=== PATIENT | male | born 1955 | race Caucasian/White ===

== ENCOUNTER 2018-07-15 20:37 | Emergency (ER) | payer BC, OTHER ==
[~2018-07-15] VITALS: Ht 180.3 cm; Wt 102.3 kg
[~2018-07-15 20:37] MED LIST: /LOR25TA PO; ALLO10TA PO; ALPR0.25 PO; ASPI325T OR; BISO5TAB2 PO; CARI350T19 PO; CLAR10CA3 PO; COUM2.5T17 PO; LEVA1TAB2 PO; LISI20TA PO; MULTTAB4 PO; OMEP20CA3 PO; PERCOCET PO; TUDO1AER2 INH; TYLE167L PO; VITA100067 PO; VOLT1GEL2 TOP; [UNRECOGNIZED DRUG - CODE] OR; [UNRECOGNIZED DRUG - OTHER] PO
[2018-07-15 21:55] LABS: HEMATOCRIT 44.2 % (42.0-52.0); HEMOGLOBIN 15.1 g/dl (13.5-17.5); MEAN CORPUSCULAR HEMOGLOBIN 33.9 pg (27.0-33.0); MEAN CORPUSCULAR HGB CONC 34.2 g/dl (32.0-36.5); MEAN CORPUSCULAR VOLUME 99.3 fl (80.0-96.0); PLATELET COUNT, AUTOMATED 430 10^3/uL (150-450); RED BLOOD COUNT 4.45 10^6/uL (4.30-6.10); WHITE BLOOD COUNT 10.3 10^3/uL (4.0-10.0)
[2018-07-15 22:18] LABS: AMPHETAMINES LEVEL URINE NEGATIVE (NEGATIVE); BARBITURATES URINE NEGATIVE (NEGATIVE); BENZODIAZEPINES URINE NEGATIVE (NEGATIVE); CANNABINOIDS URINE NEGATIVE (NEGATIVE); COCAINE METABOLITE URINE NEGATIVE (NEGATIVE); METHADONE URINE NEGATIVE (NEGATIVE); OPIATES URINE POSITIVE (NEGATIVE); PHENCYCLIDINE URINE NEGATIVE (NEGATIVE)
[2018-07-15 22:26] LABS: ACETAMINOPHEN LEVEL < 2.0 UG/ML (10.0-30.0); ALBUMIN 3.8 GM/DL (3.2-5.2); ALT/SGPT 43 U/L (12-78); BILIRUBIN,DIRECT 0.3 MG/DL (0.0-0.2); BILIRUBIN,TOTAL 0.7 MG/DL (0.2-1.0); BLOOD UREA NITROGEN 10 MG/DL (7-18); CALCIUM LEVEL 8.7 MG/DL (8.8-10.2); CARBON DIOXIDE LEVEL 25 MEQ/L (21-32); CHLORIDE LEVEL 107 MEQ/L (98-107); CREATININE FOR GFR 0.75 MG/DL (0.70-1.30); ETHYL ALCOHOL (ETHANOL) 0.241 % (0.000-0.010); GLOMERULAR FILTRATION RATE > 60.0 (>49); GLUCOSE, FASTING 101 MG/DL (70-100); POTASSIUM SERUM 4.3 MEQ/L (3.5-5.1); SALICYLATE LEVEL 2.1 MG/DL (5.0-30.0); SODIUM LEVEL 141 MEQ/L (136-145); TOTAL PROTEIN 6.6 GM/DL (6.4-8.2)
[2018-07-16] MEDS ORDERED: hydroCHLOROthiazide 25 MG TAB PO ONE (06:00)
[2018-07-16] MEDS ORDERED: LISINOPRIL 20 MG TAB PO ONE (06:00)
[2018-07-16] MEDS ORDERED: BISOPROLOL FUMARATE 5 MG TAB PO ONE (06:00)
[2018-07-16] MEDS ORDERED: HYDR-3719 PO (08:50)
[2018-07-16] MEDS ORDERED: NORCO, ANEXSIA 5/325MG TABLET (HYDROcodone/ACETAMINOPHEN) PO ONE (09:15)
[2018-07-16 10:03] VITALS: BP 160/98
== END 2018-07-16 10:12 | disposition home or self-care (01) ==
LOC: M ED 20:37
DX: F60.89 Other specific personality disorders (principal); Z73.4 Inadequate social skills, not elsewhere classified; F10.120 Alcohol abuse with intoxication, uncomplicated; I10 Essential (primary) hypertension; K21.9 Gastro-esophageal reflux disease without esophagitis; M54.9 Dorsalgia, unspecified; Z79.899 Other long term (current) drug therapy
CPT/HCPCS: 36415; 80048; 80076; 80307; 84443; 85027; 99284; G0480

== ENCOUNTER → 2020-02-28 | Outpatient (CLI) | payer BC, OTHER ==
[~2020-02-28] MED LIST changes: +ATOR1TAB19 PO; +BUPR150T3 PO; +CVS1CAP2 PO; +D31000TA2 PO; +HYDR-3719 PO; +HYDR-4517 PO; +LORA10TA3 PO; +MULTCAP PO; +OMEG1CAP16 PO; +OMEP1CAP73 PO; +OYST1TAB PO; +SILD100T PO; +TRIBTAB9 PO; -TUDO1AER2 INH; +TUDO1AER3 INH; +VENTAER INH; +VITA-243 PO; +VITATAB73 PO; +XANA0.5T PO; +ZYLO300T6 PO
[2020-02-28 07:11] LABS: INR 0.96; PARTIAL THROMBOPLASTIN TIME 26.4 SECONDS (24.2-38.5)
[2020-02-28 07:13] LABS: BASO # 0.1 10^3/uL (0.0-0.2); BASO % 0.7 % (0.0-1.0); EOS # 0.2 10^3/uL (0.0-0.5); EOS % 1.4 % (0.0-3.0); HEMATOCRIT 42.1 % (42.0-52.0); HEMOGLOBIN 13.7 g/dl (13.5-17.5); LYMPH # 4.4 10^3/uL (1.5-5.0); LYMPH % 26.1 % (24.0-44.0); MEAN CORPUSCULAR HEMOGLOBIN 31.6 pg (27.0-33.0); MEAN CORPUSCULAR HGB CONC 32.5 g/dl (32.0-36.5); MEAN CORPUSCULAR VOLUME 97.2 fl (80.0-96.0); MONO # 1.2 10^3/uL (0.0-0.8); MONO % 7.1 % (0.0-5.0); NEUTROPHILS # 10.6 10^3/uL (1.5-8.5); PLATELET COUNT, AUTOMATED 568 10^3/uL (150-450); RED BLOOD COUNT 4.33 10^6/uL (4.30-6.10); WHITE BLOOD COUNT 16.9 10^3/uL (4.0-10.0)
[2020-02-28 07:16] LABS: BLOOD UREA NITROGEN 28 MG/DL (7-18); CALCIUM LEVEL 9.1 MG/DL (8.8-10.2); CARBON DIOXIDE LEVEL 28 MEQ/L (21-32); CHLORIDE LEVEL 103 MEQ/L (98-107); CREATININE FOR GFR 1.02 MG/DL (0.70-1.30); GLOMERULAR FILTRATION RATE > 60.0 (>49); GLUCOSE, FASTING 96 MG/DL (70-100); POTASSIUM SERUM 4.2 MEQ/L (3.5-5.1); RHEUMATOID FACTOR QUANT < 10.0 IU/ML (<15.0); SODIUM LEVEL 137 MEQ/L (136-145)
[2020-03-03 17:08] LABS: ANCA-ATYPICAL <1:20 titer (Neg:<1:20); ASPERGILLUS FLAVUS ABY Negative (Neg:<1:1); ASPERGILLUS FUMIGATUS ABY Negative (Neg:<1:1); ASPERGILLUS NIGER ABY Negative (Neg:<1:1); BLASTOMYCES ANTIBODY LEVEL Negative (Neg:<1:1); CRYPTOCOCCUS ANTIGEN SER Negative (Negative); CYTOPLASMIC NEUTROP AB ANCA-C <1:20 titer (Neg:<1:20); PERINUCLEAR AB ANCA-P <1:20 titer (Neg:<1:20)
== END ==
LOC: M LAB 06:09
PROVIDERS: ATTEND Internal Medicine Pulmonary Disease
DX: R91.8 Other nonspecific abnormal finding of lung field (principal)

== ENCOUNTER → 2020-02-29 | Outpatient (CLI) | payer BC, OTHER | LOC: M LABSMTC 10:49 | PROVIDERS: ATTEND Anesthesiology | DX: Z01.812 Encounter for preprocedural laboratory examination (principal); Z20.828 Contact with and (suspected) exposure to other viral communicable diseases ==

== ENCOUNTER 2020-03-05 06:07 | Day surgery (SDC) | payer BC, OTHER ==
[~2020-03-05] VITALS: Ht 177.8 cm; Wt 120.1 kg
[~2020-03-05 06:07] MED LIST changes: +LIDOCAINE 1% MDV 20ML VIAL SQ PRN
[2020-03-05] MEDS ORDERED: LIDOCAINE 4% INJ 5ML AMP NEB ONE (07:00)
[2020-03-05] MEDS ORDERED: ALBUTEROL SULFATE 2.5 MG/0.5 ML INH NEB SOLN NEB ONE (07:00)
[2020-03-05] MEDS ORDERED: LR 1,000 ML IV ONE (07:00)
[2020-03-05] MEDS ORDERED: LIDOCAINE 1% SDV 30ML VIAL As Ordered ONE (07:11)
[2020-03-05] MEDS ORDERED: THROMBIN SOLN 20,000 UNITS KIT As Ordered ONE (07:11)
[2020-03-05] MEDS ORDERED: EPINEPHrine 1MG/10ML SYRINGE 1.5IN As Ordered ONE (07:11)
[2020-03-05] MEDS ORDERED: CETACAINE SPRAY 5GM As Ordered ONE (07:11)
[2020-03-05] MEDS ORDERED: LIDOCAINE 2% 100MG/5ML SDV (FOR ANES.) As Ordered ONE (07:18)
[2020-03-05] MEDS ORDERED: fentaNYL 100 MCG/2 ML INJECTION (J3010) As Ordered ONE (07:18)
[2020-03-05] MEDS ORDERED: ROCURONIUM BROMIDE 50 MG/5 ML VIAL As Ordered ONE (07:18)
[2020-03-05] MEDS ORDERED: dexameTHASONE 4 MG/ML 1ML VIAL (J1100 PER 1MG) As Ordered ONE (07:18)
[2020-03-05] MEDS ORDERED: ONDANSETRON 4MG/2ML VIAL As Ordered ONE (07:18)
[2020-03-05] MEDS ORDERED: propofoL 200 MG/20 ML VIAL As Ordered ONE (07:18)
[2020-03-05] MEDS ORDERED: SUGAMMADEX SODIUM 500 MG/5 ML VIAL (BRIDION) As Ordered ONE (07:18)
[2020-03-05] MEDS ORDERED: MIDAZOLAM INJ 2MG/2ML VIAL (J2250 PER 1MG) As Ordered ONE (07:18)
--- NOTE | 2020-03-05 09:54 | ROOR ---
Patient Name: Danial Bruce Procedure Date: 03/05/2020 7:21 AM Date of : 1955 Admit Type: Outpatient Age: 64 Room: Main OR Note Status: Finalized Attending MD: Delia Marte MD Procedure: Bronchoscopy Indications: Left lower lobe mass, Right upper lobe nodule Providers: Delia Marte MD (Doctor), Bong Marroquin DO, [facility] (1st Assisting Doctor), Pato Benavidez Do (Resident) Referring MD: 1. No Referring Physician 1. No Referring Physician, Admin. (Referring MD) Requesting Physician: Medicines: Lidocaine 4% via nebulizer with Albuterol 2.5 mg, Epinephrine 1 mg/10 mL topical 1 mL, Cetacaine topical, General Anesthesia Complications: No immediate complications. Estimated blood loss: Minimal Procedure: Pre-Anesthesia Assessment: - Prior to the procedure, a History and Physical was performed, and patient medications and allergies were reviewed. The patient's tolerance of previous anesthesia was also reviewed. The risks and benefits of the procedure and the sedation options and risks were discussed with the patient. All questions were answered, and informed consent was obtained. Prior Anticoagulants: The patient has taken no previous anticoagulant or antiplatelet agents. ASA Grade Assessment: II - A patient with mild systemic disease. After reviewing the risks and benefits, the patient was deemed in satisfactory condition to undergo the procedure. - Patient identification and proposed procedure were verified prior to the procedure by the physician, the nurse, the anesthesiologist, the family mediator and the sand technician. The procedure was verified in the procedure room. The Bronchoscope was introduced through the mouth, via the endotracheal tube (the patient was intubated for the procedure) and advanced to the tracheobronchial tree of both lungs. The procedure was accomplished without difficulty. The patient tolerated the procedure well. Findings: Respiratory tract: The trachea is of normal caliber. The freda is sharp. The entire tracheobronchial tree was examined to at least the first subsegmental level. Bronchial mucosa and anatomy are normal except in the left lower lobe. There was scattered pitting and webbing throughout bronchial mucosa; there were scant mucoid secretions noted and no clear endobronchial lesions. The mucosa in the the posterior basal segment of the left lower lobe appeared edematous with some narrowing. [email or web address] Robotic Electromagnetic navigation bronchoscopy was performed. The CT scan was used for planning purposes. A virtual bronchoscopic image was generated using the planning software. The targets in the anterior segment of the right upper lobe and in the posterior basal segment of the left lower lobe were marked and pathways were created. After a complete airway exam, the robotic electromagnetic navigation bronchoscopy was then begun to locate the target lesion(s) starting with the left lower lobe target lesion and then navigating to the right upper lobe target. Positioning centrally (in relation to the lesion) was confirmed using the Olympus radial probe US catheter for the left lower lobe mass and right upper lobe nodule. Transbronchial biopsies of a mass were performed in the posterior basal segment of the left lower lobe using forceps and sent for histopathology examination. The procedure was guided by fluoroscopy. Fluoroscopy guided transbronchial brushings of a mass were obtained in the posterior basal segment of the left lower lobe with a cytology brush and sent for routine cytology. Bronchoalveolar lavage was performed in the LLL posterior basal segment (B10) of the lung and sent for routine cytology and bacterial, AFB and fungal analysis. The return was blood-tinged. Mucous plugs were present in the return fluid. Transbronchial biopsies of a nodule were performed in the anterior segment of the right upper lobe using forceps and sent for histopathology examination. The procedure was guided by fluoroscopy. One biopsy pass was performed. Fluoroscopy guided transbronchial brushings of a nodule were obtained in the anterior segment of the right upper lobe with a cytology brush and sent for routine cytology. Fiducial marker placement was performed. Once the target lesion was identified, two markers were deployed around the lesion 5 mm apart in the anterior segment of the right upper lobe. An endobronchial ultrasound endoscope was utilized in order to assist with fine needle aspiration in the subcarinal area with a borderline subcarinal lymph node. EBUS evaluation of the other lymph node stations did not reveal pathologically enlarged lymph nodes. Transbronchial needle aspirations of a lymph node were performed in the subcarinal area using an Olympus EBUS-TBNA 21 gauge needle and sent for routine cytology. The procedure was guided by ultrasound. Transbronchial needle aspiration technique was selected because the sampling site was not visible endoscopically. Impression: - Left lower lobe mass - Right upper lobe nodule - Electromagnetic navigation bronchoscopy was performed. - Transbronchial lung biopsies were performed in LLL - Transbronchial brushings were obtained in LLL - Bronchoalveolar lavage was performed in LLL - Transbronchial lung biopsies were performed in RUL. - Transbronchial brushings were obtained in RUL - Fiducial markers were deployed in RUL - Endobronchial ultrasound was performed. - A transbronchial needle aspiration was performed of subcarinal LN Recommendation: - Follow up with bronchoscopist as previously scheduled. Procedure Code(s): --- Professional --- 70740, Bronchoscopy, rigid or flexible, including fluoroscopic guidance, when performed; with placement of fiducial markers, single or multiple 75306, Bronchoscopy, rigid or flexible, including fluoroscopic guidance, when performed; with transbronchial needle aspiration biopsy(s), trachea, main stem and/or lobar bronchus(i) 78087, Bronchoscopy, rigid or flexible, including fluoroscopic guidance, when performed; with transbronchial lung biopsy(s), single lobe 44754, Bronchoscopy, rigid or flexible, including fluoroscopic guidance, when performed; with bronchial alveolar lavage 53486, Bronchoscopy, rigid or flexible, including fluoroscopic guidance, when performed; with brushing or protected brushings 12089, Bronchoscopy, rigid or flexible, including fluoroscopic guidance, when performed; with computer-assisted, image-guided navigation (List separately in addition to code for primary procedure[s]) 05302, Bronchoscopy, rigid or flexible, including fluoroscopic guidance, when performed; with transendoscopic endobronchial ultrasound (EBUS) during bronchoscopic diagnostic or therapeutic intervention(s) for peripheral lesion(s) (List separately in addition to code for primary procedure[s]) CPT copyright 2019 [employer]. All rights reserved. The codes documented in this report are preliminary and upon seo professional review may be revised to meet current compliance requirements. Attending Participation: I personally performed the entire procedure. Delia Marte MD 03/05/2020 9:54:31 AM Bong Marroquin DO, [facility] Pato Benavidez Do Number of Addenda: 0 Note Initiated On: 03/05/2020 7:21 AM
--- NOTE | 2020-03-05 09:57 | REP ---
INDICATION: R/O PNEMO COMPARISON: 12/29/2013 TECHNIQUE: Portable AP view of the chest FINDINGS: The mediastinum and cardiac silhouette are stable. There is a somewhat ovoid 4 cm area of opacity along the periphery of the right mid lung zone with 2 central surgical clips suggesting known pathology. The bilateral lung coulter are otherwise clear. No new acute consolidation obvious effusion or pneumothorax. Skeletal structures intact. IMPRESSION: 1. Two surgical clips within a known pathologic lesion in the periphery of the right midlung zone. 2. No acute consolidation or effusion. No pneumothorax. <Electronically signed by Raymundo Guillory > 03/05/20 0962
[2020-03-05] MEDS ORDERED: ONDANSETRON 4MG/2ML VIAL IV PRN (10:00)
[2020-03-05] MEDS ORDERED: METOCLOPRAMIDE INJ 10MG/2ML VIAL (J2765 PER 1) IV PRN (10:00)
[2020-03-05] MEDS ORDERED: fentaNYL 100 MCG/2 ML INJECTION (J3010) IV PRN (10:00)
[2020-03-05] MEDS ORDERED: LR 1,000 ML IV SCH (10:00)
[2020-03-05 10:45] VITALS: BP 166/86
--- NOTE | 2020-03-05 19:28 | ECGEPIP ---
[facility] Test Date: 2020-03-05 Pat Name: BETO KING Department: Room: - Gender: Male Catering Cook: VGEA : 1955 Requested By: Oj Ayala Order Number: [id number] Reading MD: Francesca Davies Measurements Intervals [place] Rate: 94 P: 55 [place]: 163 QRS: 29 QRSD: 87 T: 29 QT: 336 QTc: 422 Interpretive Statements SINUS RHYTHM NO PRIOR Electronically Signed on 03-05-2020 19:28:33 EST by Francesca Davies
== END 2020-03-05 10:45 | disposition home or self-care (01) ==
LOC: M SDC 06:07
PROVIDERS: ATTEND Internal Medicine Pulmonary Disease
DX: R91.8 Other nonspecific abnormal finding of lung field (principal); I10 Essential (primary) hypertension; E78.00 Pure hypercholesterolemia, unspecified; J44.9 Chronic obstructive pulmonary disease, unspecified; M10.9 Gout, unspecified; F41.9 Anxiety disorder, unspecified; F32.9 Major depressive disorder, single episode, unspecified; K21.9 Gastro-esophageal reflux disease without esophagitis; Z79.899 Other long term (current) drug therapy
CPT/HCPCS: 31623; 31624; 31626; 31627; 31628; 31629; 31632; 31654; 71045; 76000; 87070; 87102; 87116; 87205; 87206; 88104; 88108; 88305; 88313; 93005; C1887; J1100; J2250; J2405; J3010; S2900

== ENCOUNTER → 2020-03-25 | Outpatient (CLI) | payer BC, OTHER ==
[~2020-03-25] MED LIST changes: -LIDOCAINE 1% MDV 20ML VIAL SQ PRN
--- NOTE | 2020-03-25 20:15 | REP ---
INDICATION: DIAGNOSING LUNG CANCER. COMPARISON: Chest CT dated 02/06/2020. TECHNIQUE: Scanning is performed from skull base to the upper thighs after intravenous infusion of 8.21 mCi of F 18 FDG. FINDINGS: Neck and supraclavicular areas: There are no hypermetabolic foci. There is artifactual uptake in tonsillar tissues and the tongue. Chest: The large 5 x 7 x 3.8 cm left lower lobe mass is no longer present on the CT accompanying the PET scan. There is now a curvilinear density in the left lower lobe measuring 4.0 x 1.4 cm. There is no hypermetabolic uptake in this lesion the maximal standard uptake value is 2.7 which is at the threshold of hypermetabolic uptake. On the comparison CT there was a 2nd left lower lobe mass density near the major fissure in the lower lobe superior segment measuring 3.9 x 1.9 x 3.0 cm. This is no longer present on the CT accompanying the PET scan. There are a few thickened interstitial septa in this area. There is no hypermetabolic uptake. The maximal standard uptake value is 2.2. The 1.9 cm nodule posteromedially in the right upper lobe on the comparison CT is no longer present on the CT accompanying the PET scan there is a faintly visible ground-glass density in this location today measuring approximately 2.5 cm. There is no hypermetabolic uptake. The maximal standard uptake value is 1.7. The peripheral pleural-based spiculated 3.1 x 2.7 x 2.5 cm nodule in the right upper lobe on the comparison CT is no longer present the study today. There are 2 tiny metallic markers in this location on the CT today. The maximal standard uptake value is non hypermetabolic measuring 1.2. The right lower lobe asymmetric ground-glass 1.3 cm opacity on the comparison CT is no longer present. Standard uptake value in this location is 1.3, non hypermetabolic. The 1.2 cm spiculated nodule on the comparison CT in the right lung base posteromedially is no longer present. These maximal standard uptake value in this location is 1.7, non hypermetabolic. There are no mediastinal, hilar or axillary foci. There are no other foci in the chest. Abdomen, pelvis and upper thighs: There are no hypermetabolic foci. There is artifactual bowel uptake. IMPRESSION: All of the lung nodules identified on the comparison CT have either resolved or are decreased in size. There are no hypermetabolic foci in the locations of these lung nodules. There are no hypermetabolic foci elsewhere in the chest, abdomen and pelvis or neck and supraclavicular areas. <Electronically signed by Diogo Gonzalez > 03/25/202010
== END ==
LOC: M PLARAD 15:18
PROVIDERS: ATTEND Internal Medicine Pulmonary Disease
DX: R91.8 Other nonspecific abnormal finding of lung field (principal)
CPT/HCPCS: 78815; A9552

== ENCOUNTER → 2020-09-19 | Outpatient (CLI) | payer BC, OTHER ==
[~2020-09-19] MED LIST changes: +BUPR150T12 PO; -BUPR150T3 PO
--- NOTE | 2020-09-21 04:10 | REPPI ---
INDICATION: R06.02 SHORTNESS OF BREATH COMPARISON: 03/05/2020 TECHNIQUE: PA and lateral. FINDINGS: There is a moderate area of density along the periphery of the left mid lung zone highly suspicious for mass. Two surgical clips are identified in the right midlung zone without surrounding opacity. No further consolidation, effusion, or pneumothorax. Cardiac silhouette is normal. Skeletal structures are intact. IMPRESSION: New moderate suspicious area of opacity in the periphery of the left mid lung zone. Chest CT with contrast or PET-CT is recommended. <Electronically signed by Raymundo Guillory > 09/21/20 0406
== END ==
LOC: M PLAIMG 13:33
PROVIDERS: ATTEND Physician Assistant
DX: R06.02 Shortness of breath (principal)

== ENCOUNTER → 2020-10-27 | Outpatient (CLI) | payer BC, OTHER ==
--- NOTE | 2020-10-27 11:04 | REP ---
INDICATION: ABN FINDING OF LUNG. COMPARISON: Comparison CT studies are dated February 06, 2020 and February 10, 2009.. TECHNIQUE: Helical scanning is acquired. 3 mm axial images are generated. Coronal and sagittal MPR and coronal MIP images are generated. FINDINGS: Preliminary digital lead software engineer radiograph shows 2 fiducial markings in the right perihilar region and a left perihilar irregular density. Today's axial CT images demonstrate bilateral parenchymal opacities in a different distribution than on the prior CT study. There is volume loss with air bronchograms and spiculated opacity in the left lower lobe posterior basal segment and another area of atelectasis consolidation and spiculation with air bronchograms is seen in the lingular segment of the left upper lobe. Neither of these was present previously and the similar opacities that were present previously in the left lower lobe have improved or resolved. There is some linear fibrosis in the left lower lobe. The previously noted right upper lobe nodule has resolved. The previously noted right upper lobe area of opacity has resolved with the [address] its [address]. The No pleural or pericardial effusion is seen. No hilar or mediastinal mass or adenopathy is observed. Vascular calcification is observed in the left coronary artery distribution. No adrenal lesion is seen. The visualized upper abdominal structures are unremarkable. No bony destructive lesion is seen. IMPRESSION: Waxing and waning pattern of bilateral parenchymal opacity with areas of volume loss air bronchograms and opacity in the left lower lobe and lingula today previously noted areas similar opacity have improved or resolved. <Electronically signed by Tu Tom > 10/27/20 1100
== END ==
LOC: M RAD 08:57
PROVIDERS: ATTEND Internal Medicine Pulmonary Disease
DX: R91.8 Other nonspecific abnormal finding of lung field (principal)

== ENCOUNTER → 2020-11-11 | Outpatient (CLI) | payer BC, OTHER ==
[2020-11-11 06:45] LABS: BASO # 0.2 10^3/uL (0.0-0.2); BASO % 1.4 % (0.0-1.0); EOS # 0.2 10^3/uL (0.0-0.5); EOS % 1.4 % (0.0-3.0); HEMATOCRIT 41.8 % (42.0-52.0); HEMOGLOBIN 13.8 g/dl (13.5-17.5); LYMPH # 4.5 10^3/uL (1.5-5.0); LYMPH % 29.7 % (24.0-44.0); MEAN CORPUSCULAR HEMOGLOBIN 31.8 pg (27.0-33.0); MEAN CORPUSCULAR VOLUME 96.3 fl (80.0-96.0); MONO % 6.7 % (2.0-8.0); NEUTROPHILS # 8.6 10^3/uL (1.5-8.5); NEUTROPHILS % 56.3 % (36.0-66.0); PLATELET COUNT, AUTOMATED 593 10^3/uL (150-450); RED BLOOD COUNT 4.34 10^6/uL (4.30-6.10); WHITE BLOOD COUNT 15.3 10^3/uL (4.0-10.0)
[2020-11-11 07:13] LABS: BLOOD UREA NITROGEN 25 MG/DL (7-18); C REACTIVE PROTEIN QUANTITATIV 0.32 MG/DL (0.00-0.30); CALCIUM LEVEL 9.4 MG/DL (8.8-10.2); CARBON DIOXIDE LEVEL 29 MEQ/L (21-32); CHLORIDE LEVEL 103 MEQ/L (98-107); CREATININE FOR GFR 1.41 MG/DL (0.70-1.30); GLOMERULAR FILTRATION RATE 53.5 (>49); GLUCOSE, FASTING 102 MG/DL (70-100); POTASSIUM SERUM 4.4 MEQ/L (3.5-5.1); RHEUMATOID FACTOR QUANT < 10.0 IU/ML (<15.0); SODIUM LEVEL 137 MEQ/L (136-145)
[2020-11-11 07:18] LABS: ERYTHROCYTE SEDIMENTATION RATE 17 mm/hr (0-20)
[2020-11-11 07:19] LABS: HEMOGLOBIN A1c 5.8 %
== END ==
LOC: M LAB 06:13
PROVIDERS: ATTEND Internal Medicine Pulmonary Disease
DX: J44.9 Chronic obstructive pulmonary disease, unspecified (principal)

== ENCOUNTER → 2021-01-13 | Outpatient (CLI) | payer BC, OTHER ==
--- NOTE | 2021-01-13 14:08 | REP ---
INDICATION: ABNORMAL FINDING OF LUNG FIELD COMPARISON: Multiple the latest 10/27/2020 also without contrast TECHNIQUE: Standard helical technique without contrast FINDINGS: Mediastinum and pulmonary maribel are stable. No mass or adenopathy has developed. There are no pleural or pericardial effusions. There is no significant change in appearance of the imaged upper abdomen or imaged osseous structures. Evaluation of the lung coulter shows unchanged fiducial markers in the inferior right upper lobe. The opacity with air bronchograms seen particularly in the inferior left upper lobe and somewhat in the lingula has gotten smaller and is much less dense with fewer air bronchograms. The abnormal somewhat spiculated appearing opacity in the medial basal segment of the left lower lobe has also gotten smaller and is less dense. No new abnormal nodules, masses, or opacities have developed. IMPRESSION: There is been lung field improvement as described above. <Electronically signed by Jarvis Edward > 01/13/21 [id number]
== END ==
LOC: M PLAIMG 13:32
PROVIDERS: ATTEND Internal Medicine Pulmonary Disease
DX: R91.8 Other nonspecific abnormal finding of lung field (principal)

== ENCOUNTER → 2021-04-23 | Outpatient (CLI) | payer BC, OTHER | LOC: M PLAIMG 11:13 | PROVIDERS: ATTEND Internal Medicine Pulmonary Disease | DX: J84.116 Cryptogenic organizing pneumonia (principal) ==

== ENCOUNTER → 2021-06-22 | Outpatient (CLI) | payer BC, OTHER ==
[~2021-06-22] MED LIST changes: -D31000TA2 PO; +VITA100093 PO
== END ==
LOC: M PLAIMG 12:48
PROVIDERS: ATTEND Internal Medicine Pulmonary Disease
DX: J18.9 Pneumonia, unspecified organism (principal); Z97.8 Presence of other specified devices

== ENCOUNTER 2021-11-15 20:30 | Inpatient (IN) | payer BC, OTHER ==
[~2021-11-15] VITALS: Ht 177.8 cm; Wt 123.6 kg
[~2021-11-15 20:30] MED LIST changes: +TUDO1AER2 INH; -TUDO1AER3 INH
[2021-11-15] MEDS ORDERED: ONDANSETRON 4MG 2ML VIAL As Ordered ONE (20:39)
[2021-11-15] MEDS ORDERED: ONDANSETRON 4MG 2ML VIAL IV ONE (20:40)
[2021-11-15] MEDS ORDERED: NS 1,000 ML IV ONE (20:40)
[2021-11-15 20:52] LABS: BASO # 0.1 10^3/uL (0.0-0.2); BASO % 0.5 % (0.0-1.0); HEMATOCRIT 44.4 % (42.0-52.0); HEMOGLOBIN 14.8 g/dl (13.5-17.5); LYMPH # 1.7 10^3/uL (1.5-5.0); LYMPH % 7.4 % (24.0-44.0); MEAN CORPUSCULAR HEMOGLOBIN 32.3 pg (27.0-33.0); MEAN CORPUSCULAR HGB CONC 33.3 g/dl (32.0-36.5); MEAN CORPUSCULAR VOLUME 96.9 fl (80.0-96.0); MONO % 7.8 % (2.0-8.0); NEUTROPHILS # 18.6 10^3/uL (1.5-8.5); NEUTROPHILS % 82.4 % (36.0-66.0); PLATELET COUNT, AUTOMATED 560 10^3/uL (150-450); RED BLOOD COUNT 4.58 10^6/uL (4.30-6.10); WHITE BLOOD COUNT 22.6 10^3/uL (4.0-10.0)
[2021-11-15] MEDS ORDERED: ACETAMINOPHEN 325 MG TAB PO ONE (21:00)
[2021-11-15] MEDS: THIAMINE 100 MG TAB PO SCH (21:00)
[2021-11-15 21:04] LABS: INR 0.98; PROTHROMBIN TIME 13.4 SECONDS (12.7-14.5)
[2021-11-15] MEDS ORDERED: KCL 10MEQ/100ML SWI (KRUN) 10 MEQ in IV 1 EA IV ONE (21:10)
[2021-11-15 21:21] LABS: MONO # 1.8 10^3/uL (0.0-0.8)
[2021-11-15 21:22] LABS: ETHYL ALCOHOL (ETHANOL) 0.034 % (0.000-0.010)
[2021-11-15 21:27] LABS: CK-MB VALUE MASS < 1.0 NG/ML (<3.6); CPK CREATINE PHOSPHOKINASE 77 U/L (39-308)
[2021-11-15] MEDS ORDERED: MORPHINE 4 MG/ML 1ML VIAL/SYRINGE IV ONE (21:45)
[2021-11-15 22:33] LABS: CK-MB VALUE MASS < 1.0 NG/ML (<3.6); CPK CREATINE PHOSPHOKINASE 55 U/L (39-308); MB/CK RELATIVE INDEX 1.82 (< OR =4)
[2021-11-15] MEDS ORDERED: IBUPROFEN 800 MG TAB PO ONE (23:10)
[2021-11-15 23:14] LABS: ALBUMIN 3.9 GM/DL (3.2-5.2); BILIRUBIN,DIRECT 0.2 MG/DL (0.0-0.2); BILIRUBIN,TOTAL 0.7 MG/DL (0.2-1.0); MAGNESIUM LEVEL 1.5 MG/DL (1.8-2.4); TOTAL PROTEIN 7.9 GM/DL (6.4-8.2)
[2021-11-15 23:30] LABS: C REACTIVE PROTEIN QUANTITATIV 7.2 MG/DL (0.00-0.30)
[2021-11-15] MEDS ORDERED: VANCOMYCIN HCL 2,000 MG in D5W 500 ML IV ONE (23:35)
[2021-11-15 23:45] LABS: ERYTHROCYTE SEDIMENTATION RATE 10 mm/hr (0-20)
[2021-11-16] MEDS ORDERED: ALLO300T2 PO (00:09)
[2021-11-16] MEDS ORDERED: FISH1000 PO (00:09)
[2021-11-16] MEDS ORDERED: MULT-90 PO (00:09)
[2021-11-16] MEDS ORDERED: BUPR-71 PO (00:20)
[2021-11-16] MEDS ORDERED: INCR1INH INH (00:20)
[2021-11-16] MEDS ORDERED: BREO1INH INH (00:20)
[2021-11-16] MEDS ORDERED: HYDR-4514 PO (00:20)
[2021-11-16] MEDS ORDERED: med rec comment (00:20)
[2021-11-16] MEDS ORDERED: HOME MED LIST COMPLETE! XX SCH (00:25)
[2021-11-16] MEDS ORDERED: MAGNESIUM OXIDE 400MG TAB (MAG-OX) PO ONE (00:30)
[2021-11-16] MEDS ORDERED: ONDANSETRON 4MG 2ML VIAL IV PRN ×2 (00:40→21:30)
[2021-11-16] MEDS ORDERED: VANCOMYCIN HCL 1,000 MG, VIAL MATE ADAPTER 1 EACH in NS 250 ML IV ONE ×4 (01:00)
[2021-11-16] MEDS ORDERED: LORazepam 2 MG TAB PO PRN (01:00)
[2021-11-16] MEDS: NS 1,000 ML IV SCH (01:05)
[2021-11-16] MEDS ORDERED: ALBUTEROL 90 MCG/ACT 8GM HFA INHALER INH PRN (01:40)
[2021-11-16] MEDS ORDERED: NS 1,000 ML IV ONE (01:45)
[2021-11-16] MEDS: MORPHINE 2 MG/ML 1ML VIAL IV PRN ×3 (02:09→14:40)
[2021-11-16] MEDS: PIPERACILLIN/TAZOBACTAM SOD 3.375 GM in D5W MINI-BAG PLUS 50 ML IV SCH ×4 (02:09→21:00)
[2021-11-16] MEDS: LIDOCAINE 5% (LIDODERM) PATCH TD SCH (02:13)
[2021-11-16] MEDS: carisoprodoL 350 MG TAB PO PRN (04:12)
[2021-11-16] MEDS: ACETAMINOPHEN TAB 650MG DOSE (2X325MG) PO PRN (04:13)
[2021-11-16 07:28] LABS: BASO # 0.1 10^3/uL (0.0-0.2); BASO % 0.3 % (0.0-1.0); HEMATOCRIT 39.3 % (42.0-52.0); HEMOGLOBIN 13.3 g/dl (13.5-17.5); LYMPH # 1.7 10^3/uL (1.5-5.0); LYMPH % 5.8 % (24.0-44.0); MEAN CORPUSCULAR HEMOGLOBIN 32.1 pg (27.0-33.0); MEAN CORPUSCULAR HGB CONC 33.8 g/dl (32.0-36.5); MEAN CORPUSCULAR VOLUME 94.9 fl (80.0-96.0); MONO % 8.5 % (2.0-8.0); NEUTROPHILS # 24.2 10^3/uL (1.5-8.5); NEUTROPHILS % 82.5 % (36.0-66.0); PLATELET COUNT, AUTOMATED 468 10^3/uL (150-450); RED BLOOD COUNT 4.14 10^6/uL (4.30-6.10); WHITE BLOOD COUNT 29.3 10^3/uL (4.0-10.0)
[2021-11-16 07:37] LABS: MONO # 2.5 10^3/uL (0.0-0.8)
[2021-11-16 07:41] LABS: HEMOGLOBIN A1c 5.6 %
[2021-11-16 08:10] LABS: BLOOD UREA NITROGEN 14 MG/DL (7-18); CALCIUM LEVEL 8.9 MG/DL (8.8-10.2); CARBON DIOXIDE LEVEL 24 MEQ/L (21-32); CHLORIDE LEVEL 104 MEQ/L (98-107); CREATININE FOR GFR 1.05 MG/DL (0.70-1.30); ETHYL ALCOHOL (ETHANOL) < 0.003 % (0.000-0.010); GLOMERULAR FILTRATION RATE > 60.0 (>49); GLUCOSE, FASTING 121 MG/DL (70-100); NT-PRO BNP 340 PG/ML (<125); POTASSIUM SERUM 4.3 MEQ/L (3.5-5.1); SODIUM LEVEL 137 MEQ/L (136-145); URIC ACID 4.4 MG/DL (3.5-7.2)
[2021-11-16 09:40] VITALS: BP 164/73
[2021-11-16] MEDS: VANCOMYCIN HCL 750 MG, VIAL MATE ADAPTER 1 EACH in D5W 250 ML IV SCH (09:53)
[2021-11-16] MEDS: ENOXAPARIN 40MG/0.4ML SYRINGE (J1650 PER 10MG) SC SCH (10:10)
[2021-11-16] MEDS: allopurinoL 300 MG TAB PO SCH (10:11)
[2021-11-16] MEDS: VITAMIN D 1,000 INTERNATIONAL UNITS TABLET PO SCH (10:11)
[2021-11-16] MEDS: FOLIC ACID 1MG TAB PO SCH (10:11)
[2021-11-16] MEDS: MULTIVITAMINS/MINERALS THERAP 1 TAB PO SCH (10:11)
[2021-11-16] MEDS: OMEPRAZOLE 20MG CAP PO SCH (10:11)
[2021-11-16] MEDS: ATORVASTATIN 10 MG TAB PO SCH (10:11)
[2021-11-16] MEDS: ASCORBIC ACID 500 MG TAB PO SCH (10:11)
[2021-11-16] MEDS: LORATADINE 10 MG TAB PO SCH (10:11)
[2021-11-16] MEDS: THIAMINE 100 MG TAB PO SCH (10:11)
[2021-11-16] MEDS: LACTOBACILLUS ACIDOPHILUS CAP (BACID) PO SCH (10:12)
[2021-11-16] MEDS: buPROPion **SR TABLET** (ZYBAN) 150MG PO SCH (10:21)
[2021-11-16] MEDS: VANCOMYCIN HCL 500 MG in D5W MINI-BAG PLUS 100 ML IV SCH (11:24)
[2021-11-16 13:08] LABS: VITAMIN B12 LEVEL 788 PG/ML (247-911)
[2021-11-16 14:00] VITALS: BP 164/71
[2021-11-16] MEDS: **NOTE PATIENT COMMENT** MISC XX SCH (14:00)
[2021-11-16] MEDS ORDERED: propofoL 200 MG/20 ML VIAL As Ordered ONE (19:10)
[2021-11-16] MEDS ORDERED: ROCURONIUM BROMIDE 50 MG/5 ML VIAL As Ordered ONE (19:10)
[2021-11-16] MEDS ORDERED: dexameTHASONE 4 MG/ML 1ML VIAL (J1100 PER 1MG) As Ordered ONE (19:10)
[2021-11-16] MEDS ORDERED: ONDANSETRON 4MG 2ML VIAL As Ordered ONE (19:10)
[2021-11-16] MEDS ORDERED: EPINEPHrine INJ 1 MG/ML 1ML AMP As Ordered ONE (19:17)
[2021-11-16] MEDS ORDERED: LIDOCAINE 1% MDV 20ML VIAL As Ordered ONE (19:17)
[2021-11-16] MEDS ORDERED: fentaNYL 100 MCG/2 ML INJECTION As Ordered ONE (19:32)
[2021-11-16] MEDS ORDERED: MIDAZOLAM INJ 2MG/2ML VIAL (J2250 PER 1MG) As Ordered ONE (19:32)
[2021-11-16] MEDS ORDERED: LIDOCAINE 2% 100MG/5ML SDV (FOR ANES.) As Ordered ONE (19:32)
[2021-11-16] MEDS ORDERED: PHENYLEPHRINE 10MG/ML 1ML VIAL (J2370 PER 1) As Ordered ONE (20:40)
[2021-11-16] MEDS ORDERED: ZOSYN 3.375GM VIAL ONE (21:00)
[2021-11-16] MEDS ORDERED: BUPIVACAINE/EPIN 0.25% 30 ML VIAL As Ordered ONE (21:02)
[2021-11-16] MEDS ORDERED: ZOSYN 3.375GM VIAL As Ordered ONE (21:02)
[2021-11-16] MEDS ORDERED: ACETAMINOPHEN 1000MG 100ML IV BTL (OFIRMEV) (J0131 PER 10MG) As Ordered ONE (21:15)
[2021-11-16] MEDS ORDERED: METOCLOPRAMIDE INJ 10MG/2ML VIAL (J2765 PER 1) IV PRN (21:30)
[2021-11-16] MEDS ORDERED: oxyCODONE 5MG TAB PO PRN (21:30)
[2021-11-16] MEDS ORDERED: LR 1,000 ML IV SCH (21:30)
[2021-11-16] MEDS ORDERED: MORPHINE 2 MG/ML 1ML VIAL IV PRN (21:30)
[2021-11-16] MEDS: fentaNYL 100 MCG/2 ML INJECTION IV PRN ×4 (21:43→22:18)
[2021-11-16 22:58] VITALS: BP 138/70
[2021-11-16 23:01] LABS: SOURCE, BODY FLUID LT SHOULDER; SYNOVIAL FLUID COLOR RED (COLORLESS)
[2021-11-16 23:02] VITALS: O2SAT 83
[2021-11-16 23:04] LABS: SOURCE, BODY FLUID CRYSTALS LT SHOULDER
[2021-11-16 23:31] VITALS: BP 129/60
[2021-11-17] VITALS (19 sets, daily range): BP systolic 120–150; BP diastolic 60–95; O2SAT 91–96
[2021-11-17] MEDS: NS 1,000 ML IV SCH (00:26)
[2021-11-17] MEDS: VANCOMYCIN HCL 750 MG, VIAL MATE ADAPTER 1 EACH in D5W 250 ML IV SCH (00:29)
[2021-11-17] MEDS: OMEPRAZOLE 20MG CAP PO SCH ×3 (00:35→20:08)
[2021-11-17] MEDS: THIAMINE 100 MG TAB PO SCH ×3 (00:35→20:08)
[2021-11-17] MEDS: VANCOMYCIN HCL 500 MG in D5W MINI-BAG PLUS 100 ML IV SCH (01:41)
[2021-11-17] MEDS: PIPERACILLIN/TAZOBACTAM SOD 3.375 GM in D5W MINI-BAG PLUS 50 ML IV SCH ×2 (02:59→08:19)
[2021-11-17] MEDS: MORPHINE 2 MG/ML 1ML VIAL IV PRN ×2 (03:02→12:38)
[2021-11-17] MEDS: allopurinoL 300 MG TAB PO SCH (08:31)
[2021-11-17] MEDS: VITAMIN D 1,000 INTERNATIONAL UNITS TABLET PO SCH (08:31)
[2021-11-17] MEDS: LACTOBACILLUS ACIDOPHILUS CAP (BACID) PO SCH (08:31)
[2021-11-17] MEDS: MULTIVITAMINS/MINERALS THERAP 1 TAB PO SCH (08:31)
[2021-11-17] MEDS: FOLIC ACID 1MG TAB PO SCH (08:31)
[2021-11-17] MEDS: buPROPion **SR TABLET** (ZYBAN) 150MG PO SCH (08:31)
[2021-11-17] MEDS: ASCORBIC ACID 500 MG TAB PO SCH (08:31)
[2021-11-17] MEDS: LORATADINE 10 MG TAB PO SCH (08:31)
[2021-11-17] MEDS: ATORVASTATIN 10 MG TAB PO SCH (08:31)
[2021-11-17] MEDS: ENOXAPARIN 40MG/0.4ML SYRINGE (J1650 PER 10MG) SC SCH (08:32)
[2021-11-17] MEDS: NORCO, ANEXSIA 5/325MG TABLET (HYDROcodone/ACETAMINOPHEN) PO PRN ×3 (08:32→22:04)
[2021-11-17 08:39] LABS: HEMATOCRIT 38.6 % (42.0-52.0); HEMOGLOBIN 12.6 g/dl (13.5-17.5); MEAN CORPUSCULAR HEMOGLOBIN 32.5 pg (27.0-33.0); MEAN CORPUSCULAR HGB CONC 32.6 g/dl (32.0-36.5); MEAN CORPUSCULAR VOLUME 99.5 fl (80.0-96.0); PLATELET COUNT, AUTOMATED 471 10^3/uL (150-450); RED BLOOD COUNT 3.88 10^6/uL (4.30-6.10); WHITE BLOOD COUNT 25.5 10^3/uL (4.0-10.0)
[2021-11-17] MEDS: LIDOCAINE 5% (LIDODERM) PATCH TD SCH (09:00)
[2021-11-17 09:36] LABS: ALBUMIN 2.8 GM/DL (3.2-5.2); ALT/SGPT 32 U/L (12-78); BILIRUBIN,TOTAL 0.8 MG/DL (0.2-1.0); BLOOD UREA NITROGEN 13 MG/DL (7-18); CALCIUM LEVEL 8.5 MG/DL (8.8-10.2); CARBON DIOXIDE LEVEL 28 MEQ/L (21-32); CHLORIDE LEVEL 102 MEQ/L (98-107); CREATININE FOR GFR 0.98 MG/DL (0.70-1.30); GLOMERULAR FILTRATION RATE > 60.0 (>49); GLUCOSE, FASTING 128 MG/DL (70-100); POTASSIUM SERUM 4.3 MEQ/L (3.5-5.1); SODIUM LEVEL 137 MEQ/L (136-145); TOTAL PROTEIN 6.3 GM/DL (6.4-8.2); VANCOMYCIN LEVEL TROUGH 11.4 UG/ML (10.0-20.0)
[2021-11-17] MEDS: VANCOMYCIN HCL 1,000 MG, VIAL MATE ADAPTER 1 EACH in D5W 250 ML IV SCH ×2 (10:04→17:20)
[2021-11-17] MEDS: PIPERACILLIN/TAZOBACTAM SOD 4.5 GM in D5W MINI-BAG PLUS 50 ML IV SCH ×2 (13:42→20:09)
[2021-11-17] MEDS: **NOTE PATIENT COMMENT** MISC XX SCH (20:09)
[2021-11-18] MEDS: VANCOMYCIN HCL 1,000 MG, VIAL MATE ADAPTER 1 EACH in D5W 250 ML IV SCH (02:09)
[2021-11-18] MEDS: PIPERACILLIN/TAZOBACTAM SOD 4.5 GM in D5W MINI-BAG PLUS 50 ML IV SCH ×2 (03:22→08:45)
[2021-11-18] MEDS: NORCO, ANEXSIA 5/325MG TABLET (HYDROcodone/ACETAMINOPHEN) PO PRN ×3 (04:19→20:12)
[2021-11-18 06:04] LABS: HEMATOCRIT 37.6 % (42.0-52.0); HEMOGLOBIN 12.4 g/dl (13.5-17.5); MEAN CORPUSCULAR HEMOGLOBIN 32.5 pg (27.0-33.0); MEAN CORPUSCULAR VOLUME 98.4 fl (80.0-96.0); PLATELET COUNT, AUTOMATED 522 10^3/uL (150-450); RED BLOOD COUNT 3.82 10^6/uL (4.30-6.10)
[2021-11-18 06:07] VITALS: BP 126/64
[2021-11-18 06:50] LABS: ALBUMIN 2.8 GM/DL (3.2-5.2); ALT/SGPT 50 U/L (12-78); BILIRUBIN,TOTAL 0.8 MG/DL (0.2-1.0); BLOOD UREA NITROGEN 13 MG/DL (7-18); CALCIUM LEVEL 8.7 MG/DL (8.8-10.2); CARBON DIOXIDE LEVEL 26 MEQ/L (21-32); CHLORIDE LEVEL 102 MEQ/L (98-107); CREATININE FOR GFR 0.96 MG/DL (0.70-1.30); GLOMERULAR FILTRATION RATE > 60.0 (>49); GLUCOSE, FASTING 111 MG/DL (70-100); POTASSIUM SERUM 3.9 MEQ/L (3.5-5.1); SODIUM LEVEL 135 MEQ/L (136-145); TOTAL PROTEIN 6.6 GM/DL (6.4-8.2)
[2021-11-18 07:18] LABS: ERYTHROCYTE SEDIMENTATION RATE 88 mm/hr (0-20)
[2021-11-18] MEDS: ENOXAPARIN 40MG/0.4ML SYRINGE (J1650 PER 10MG) SC SCH (08:45)
[2021-11-18] MEDS: LACTOBACILLUS ACIDOPHILUS CAP (BACID) PO SCH (08:45)
[2021-11-18] MEDS: buPROPion **SR TABLET** (ZYBAN) 150MG PO SCH (08:45)
[2021-11-18] MEDS: THIAMINE 100 MG TAB PO SCH ×2 (08:46→20:13)
[2021-11-18] MEDS: ASCORBIC ACID 500 MG TAB PO SCH (08:46)
[2021-11-18] MEDS: OMEPRAZOLE 20MG CAP PO SCH ×2 (08:46→20:11)
[2021-11-18] MEDS: FOLIC ACID 1MG TAB PO SCH (08:46)
[2021-11-18] MEDS: allopurinoL 300 MG TAB PO SCH (08:46)
[2021-11-18] MEDS: ATORVASTATIN 10 MG TAB PO SCH (08:46)
[2021-11-18] MEDS: MULTIVITAMINS/MINERALS THERAP 1 TAB PO SCH (08:47)
[2021-11-18] MEDS: LORATADINE 10 MG TAB PO SCH (08:47)
[2021-11-18] MEDS: VITAMIN D 1,000 INTERNATIONAL UNITS TABLET PO SCH (08:49)
[2021-11-18] MEDS: LIDOCAINE 5% (LIDODERM) PATCH TD SCH (08:50)
[2021-11-18 09:00] VITALS: O2SAT 93
[2021-11-18 14:00] VITALS: BP 129/69
[2021-11-18] MEDS: cefTRIAXone SOD 1 GM in D5W MINI-BAG PLUS 50 ML IV SCH (16:49)
[2021-11-18] MEDS: MIRALAX *UNIT DOSE* 17GM PACKET PO SCH (16:49)
[2021-11-18 16:51] VITALS: BP 150/78
[2021-11-18 20:00] VITALS: BP 143/78; O2SAT 95
[2021-11-18] MEDS: SENNA 8.6 MG TAB (SENOKOT) PO SCH (20:12)
[2021-11-18] MEDS: DOCUSATE SODIUM 100MG CAPSULE PO SCH (20:12)
[2021-11-18] MEDS: **NOTE PATIENT COMMENT** MISC XX SCH (20:15)
[2021-11-19] MEDS: NORCO, ANEXSIA 5/325MG TABLET (HYDROcodone/ACETAMINOPHEN) PO PRN ×3 (04:22→23:50)
[2021-11-19 05:30] VITALS: BP 142/73
[2021-11-19 05:58] LABS: HEMATOCRIT 37.8 % (42.0-52.0); HEMOGLOBIN 12.5 g/dl (13.5-17.5); MEAN CORPUSCULAR HEMOGLOBIN 32.5 pg (27.0-33.0); MEAN CORPUSCULAR HGB CONC 33.1 g/dl (32.0-36.5); MEAN CORPUSCULAR VOLUME 98.2 fl (80.0-96.0); PLATELET COUNT, AUTOMATED 551 10^3/uL (150-450); RED BLOOD COUNT 3.85 10^6/uL (4.30-6.10); WHITE BLOOD COUNT 13.9 10^3/uL (4.0-10.0)
[2021-11-19 06:32] LABS: ALBUMIN 2.6 GM/DL (3.2-5.2); ALT/SGPT 54 U/L (12-78); BILIRUBIN,TOTAL 0.6 MG/DL (0.2-1.0); BLOOD UREA NITROGEN 13 MG/DL (7-18); CALCIUM LEVEL 9.1 MG/DL (8.8-10.2); CARBON DIOXIDE LEVEL 26 MEQ/L (21-32); CHLORIDE LEVEL 104 MEQ/L (98-107); CREATININE FOR GFR 0.79 MG/DL (0.70-1.30); GLOMERULAR FILTRATION RATE > 60.0 (>49); GLUCOSE, FASTING 109 MG/DL (70-100); POTASSIUM SERUM 3.6 MEQ/L (3.5-5.1); SODIUM LEVEL 137 MEQ/L (136-145); TOTAL PROTEIN 6.2 GM/DL (6.4-8.2)
[2021-11-19] MEDS: LACTOBACILLUS ACIDOPHILUS CAP (BACID) PO SCH (08:00)
[2021-11-19] MEDS: ASCORBIC ACID 500 MG TAB PO SCH (08:00)
[2021-11-19] MEDS: LORATADINE 10 MG TAB PO SCH (08:00)
[2021-11-19] MEDS: FOLIC ACID 1MG TAB PO SCH (08:00)
[2021-11-19] MEDS: MULTIVITAMINS/MINERALS THERAP 1 TAB PO SCH (08:00)
[2021-11-19] MEDS: VITAMIN D 1,000 INTERNATIONAL UNITS TABLET PO SCH (08:00)
[2021-11-19] MEDS: OMEPRAZOLE 20MG CAP PO SCH ×2 (08:00→20:36)
[2021-11-19] MEDS: THIAMINE 100 MG TAB PO SCH (08:00)
[2021-11-19] MEDS: buPROPion **SR TABLET** (ZYBAN) 150MG PO SCH (08:00)
[2021-11-19] MEDS: ATORVASTATIN 10 MG TAB PO SCH (08:00)
[2021-11-19] MEDS: allopurinoL 300 MG TAB PO SCH (08:00)
[2021-11-19] MEDS: ENOXAPARIN 40MG/0.4ML SYRINGE (J1650 PER 10MG) SC SCH (08:01)
[2021-11-19] MEDS: MIRALAX *UNIT DOSE* 17GM PACKET PO SCH (08:03)
[2021-11-19] MEDS: LIDOCAINE 5% (LIDODERM) PATCH TD SCH (08:03)
[2021-11-19] MEDS: DOCUSATE SODIUM 100MG CAPSULE PO SCH ×2 (08:03→20:32)
[2021-11-19 10:00] VITALS: BP 152/80
[2021-11-19 14:00] VITALS: BP 144/76
[2021-11-19] MEDS: cefTRIAXone SOD 1 GM in D5W MINI-BAG PLUS 50 ML IV SCH (14:42)
[2021-11-19] MEDS: SENNA 8.6 MG TAB (SENOKOT) PO SCH (20:32)
[2021-11-19] MEDS: **NOTE PATIENT COMMENT** MISC XX SCH (20:33)
[2021-11-19 21:06] VITALS: BP 157/82
[2021-11-19 22:00] VITALS: O2SAT 93
[2021-11-20 05:13] VITALS: BP 131/68
[2021-11-20 05:57] LABS: HEMATOCRIT 39.4 % (42.0-52.0); HEMOGLOBIN 13.1 g/dl (13.5-17.5); MEAN CORPUSCULAR HEMOGLOBIN 31.9 pg (27.0-33.0); MEAN CORPUSCULAR HGB CONC 33.2 g/dl (32.0-36.5); MEAN CORPUSCULAR VOLUME 95.9 fl (80.0-96.0); PLATELET COUNT, AUTOMATED 645 10^3/uL (150-450); RED BLOOD COUNT 4.11 10^6/uL (4.30-6.10); WHITE BLOOD COUNT 16.3 10^3/uL (4.0-10.0)
[2021-11-20 06:43] LABS: ALBUMIN 2.7 GM/DL (3.2-5.2); ALT/SGPT 61 U/L (12-78); BILIRUBIN,TOTAL 0.7 MG/DL (0.2-1.0); BLOOD UREA NITROGEN 10 MG/DL (7-18); CALCIUM LEVEL 9.4 MG/DL (8.8-10.2); CARBON DIOXIDE LEVEL 27 MEQ/L (21-32); CHLORIDE LEVEL 102 MEQ/L (98-107); GLOMERULAR FILTRATION RATE > 60.0 (>49); GLUCOSE, FASTING 114 MG/DL (70-100); POTASSIUM SERUM 4.2 MEQ/L (3.5-5.1); SODIUM LEVEL 136 MEQ/L (136-145); TOTAL PROTEIN 6.5 GM/DL (6.4-8.2)
[2021-11-20 07:01] LABS: ERYTHROCYTE SEDIMENTATION RATE 81 mm/hr (0-20)
[2021-11-20] MEDS: ATORVASTATIN 10 MG TAB PO SCH (08:26)
[2021-11-20] MEDS: allopurinoL 300 MG TAB PO SCH (08:26)
[2021-11-20] MEDS: buPROPion **SR TABLET** (ZYBAN) 150MG PO SCH (08:26)
[2021-11-20] MEDS: ASCORBIC ACID 500 MG TAB PO SCH (08:26)
[2021-11-20] MEDS: FOLIC ACID 1MG TAB PO SCH (08:26)
[2021-11-20] MEDS: MULTIVITAMINS/MINERALS THERAP 1 TAB PO SCH (08:26)
[2021-11-20] MEDS: OMEPRAZOLE 20MG CAP PO SCH ×2 (08:26→21:25)
[2021-11-20] MEDS: LACTOBACILLUS ACIDOPHILUS CAP (BACID) PO SCH (08:26)
[2021-11-20] MEDS: ENOXAPARIN 40MG/0.4ML SYRINGE (J1650 PER 10MG) SC SCH (08:26)
[2021-11-20] MEDS: VITAMIN D 1,000 INTERNATIONAL UNITS TABLET PO SCH (08:26)
[2021-11-20] MEDS: LORATADINE 10 MG TAB PO SCH (08:26)
[2021-11-20] MEDS: LIDOCAINE 5% (LIDODERM) PATCH TD SCH ×2 (08:30→09:46)
[2021-11-20] MEDS: DOCUSATE SODIUM 100MG CAPSULE PO SCH ×2 (08:30→21:00)
[2021-11-20] MEDS: NORCO, ANEXSIA 5/325MG TABLET (HYDROcodone/ACETAMINOPHEN) PO PRN ×3 (08:30→21:25)
[2021-11-20] MEDS: MIRALAX *UNIT DOSE* 17GM PACKET PO SCH (08:30)
[2021-11-20 14:00] VITALS: BP 135/67
[2021-11-20] MEDS: cefTRIAXone SOD 1 GM in D5W MINI-BAG PLUS 50 ML IV SCH (14:59)
[2021-11-20] MEDS: SENNA 8.6 MG TAB (SENOKOT) PO SCH (21:00)
[2021-11-20 21:19] VITALS: BP 142/74
[2021-11-20] MEDS: **NOTE PATIENT COMMENT** MISC XX SCH (21:25)
[2021-11-20] MEDS: carisoprodoL 350 MG TAB PO PRN (21:25)
[2021-11-21] MEDS: NORCO, ANEXSIA 5/325MG TABLET (HYDROcodone/ACETAMINOPHEN) PO PRN ×3 (04:15→22:35)
[2021-11-21 04:55] VITALS: BP 125/71
[2021-11-21] MEDS: carisoprodoL 350 MG TAB PO PRN ×3 (06:02→22:35)
[2021-11-21 06:17] LABS: HEMOGLOBIN 12.8 g/dl (13.5-17.5); MEAN CORPUSCULAR HEMOGLOBIN 32.5 pg (27.0-33.0); MEAN CORPUSCULAR HGB CONC 33.7 g/dl (32.0-36.5); MEAN CORPUSCULAR VOLUME 96.4 fl (80.0-96.0); PLATELET COUNT, AUTOMATED 684 10^3/uL (150-450); RED BLOOD COUNT 3.94 10^6/uL (4.30-6.10); WHITE BLOOD COUNT 17.9 10^3/uL (4.0-10.0)
[2021-11-21 06:49] LABS: ALBUMIN 2.6 GM/DL (3.2-5.2); ALT/SGPT 53 U/L (12-78); BILIRUBIN,TOTAL 0.5 MG/DL (0.2-1.0); BLOOD UREA NITROGEN 12 MG/DL (7-18); CALCIUM LEVEL 8.8 MG/DL (8.8-10.2); CARBON DIOXIDE LEVEL 25 MEQ/L (21-32); CHLORIDE LEVEL 100 MEQ/L (98-107); CREATININE FOR GFR 0.82 MG/DL (0.70-1.30); GLOMERULAR FILTRATION RATE > 60.0 (>49); GLUCOSE, FASTING 121 MG/DL (70-100); POTASSIUM SERUM 3.2 MEQ/L (3.5-5.1); SODIUM LEVEL 134 MEQ/L (136-145); TOTAL PROTEIN 6.3 GM/DL (6.4-8.2)
[2021-11-21 08:51] LABS: ERYTHROCYTE SEDIMENTATION RATE 72 mm/hr (0-20)
[2021-11-21] MEDS ORDERED: POTASSIUM CHLORIDE 10MEQ SR TABLET PO ONE (09:00)
[2021-11-21] MEDS: DOCUSATE SODIUM 100MG CAPSULE PO SCH ×2 (09:00→19:52)
[2021-11-21] MEDS: MIRALAX *UNIT DOSE* 17GM PACKET PO SCH (09:00)
[2021-11-21] MEDS: LIDOCAINE 5% (LIDODERM) PATCH TD SCH (09:10)
[2021-11-21] MEDS: ENOXAPARIN 40MG/0.4ML SYRINGE (J1650 PER 10MG) SC SCH (09:12)
[2021-11-21] MEDS: buPROPion **SR TABLET** (ZYBAN) 150MG PO SCH (09:12)
[2021-11-21] MEDS: LACTOBACILLUS ACIDOPHILUS CAP (BACID) PO SCH (09:12)
[2021-11-21] MEDS: OMEPRAZOLE 20MG CAP PO SCH ×2 (09:12→20:17)
[2021-11-21] MEDS: ATORVASTATIN 10 MG TAB PO SCH (09:13)
[2021-11-21] MEDS: LORATADINE 10 MG TAB PO SCH (09:13)
[2021-11-21] MEDS: ASCORBIC ACID 500 MG TAB PO SCH (09:14)
[2021-11-21] MEDS: MULTIVITAMINS/MINERALS THERAP 1 TAB PO SCH (09:14)
[2021-11-21] MEDS: VITAMIN D 1,000 INTERNATIONAL UNITS TABLET PO SCH (09:14)
[2021-11-21] MEDS: allopurinoL 300 MG TAB PO SCH (09:14)
[2021-11-21] MEDS: FOLIC ACID 1MG TAB PO SCH (09:14)
[2021-11-21 09:44] LABS: HYALINE CAST, URINE NONE SEEN /lpf (0-1); SQUAMOUS EPITHELIAL CELL URINE SMALL AMOUNT /hpf (SMALL AMT); WBC, URINE 0-1 /hpf (0-3)
[2021-11-21 09:45] LABS: BACTERIA, URINE SMALL AMOUNT
[2021-11-21 14:00] VITALS: BP 139/79
[2021-11-21] MEDS: cefTRIAXone SOD 1 GM in D5W MINI-BAG PLUS 50 ML IV SCH (14:25)
[2021-11-21] MEDS: SENNA 8.6 MG TAB (SENOKOT) PO SCH (19:53)
[2021-11-21] MEDS: **NOTE PATIENT COMMENT** MISC XX SCH (20:20)
[2021-11-21] MEDS: ACETAMINOPHEN TAB 650MG DOSE (2X325MG) PO PRN (20:20)
[2021-11-21 21:09] VITALS: BP 142/72
[2021-11-22] MEDS: NORCO, ANEXSIA 5/325MG TABLET (HYDROcodone/ACETAMINOPHEN) PO PRN ×2 (04:41→12:18)
[2021-11-22 05:05] VITALS: BP 136/65
[2021-11-22 05:53] LABS: HEMATOCRIT 36.6 % (42.0-52.0); HEMOGLOBIN 12.4 g/dl (13.5-17.5); MEAN CORPUSCULAR HEMOGLOBIN 32.5 pg (27.0-33.0); MEAN CORPUSCULAR HGB CONC 33.9 g/dl (32.0-36.5); MEAN CORPUSCULAR VOLUME 95.8 fl (80.0-96.0); PLATELET COUNT, AUTOMATED 759 10^3/uL (150-450); RED BLOOD COUNT 3.82 10^6/uL (4.30-6.10); WHITE BLOOD COUNT 16.9 10^3/uL (4.0-10.0)
[2021-11-22 06:27] LABS: ALBUMIN 2.5 GM/DL (3.2-5.2); ALT/SGPT 61 U/L (12-78); BILIRUBIN,TOTAL 0.4 MG/DL (0.2-1.0); BLOOD UREA NITROGEN 12 MG/DL (7-18); CARBON DIOXIDE LEVEL 26 MEQ/L (21-32); CHLORIDE LEVEL 102 MEQ/L (98-107); CREATININE FOR GFR 0.71 MG/DL (0.70-1.30); GLOMERULAR FILTRATION RATE > 60.0 (>49); GLUCOSE, FASTING 124 MG/DL (70-100); POTASSIUM SERUM 3.6 MEQ/L (3.5-5.1); SODIUM LEVEL 135 MEQ/L (136-145); TOTAL PROTEIN 6.2 GM/DL (6.4-8.2)
[2021-11-22] MEDS: carisoprodoL 350 MG TAB PO PRN (07:39)
[2021-11-22] MEDS: DOCUSATE SODIUM 100MG CAPSULE PO SCH (09:00)
[2021-11-22] MEDS: MIRALAX *UNIT DOSE* 17GM PACKET PO SCH (09:00)
[2021-11-22] MEDS: LACTOBACILLUS ACIDOPHILUS CAP (BACID) PO SCH (09:26)
[2021-11-22] MEDS: buPROPion **SR TABLET** (ZYBAN) 150MG PO SCH (09:26)
[2021-11-22] MEDS: FOLIC ACID 1MG TAB PO SCH (09:26)
[2021-11-22] MEDS: ATORVASTATIN 10 MG TAB PO SCH (09:27)
[2021-11-22] MEDS: allopurinoL 300 MG TAB PO SCH (09:27)
[2021-11-22] MEDS: OMEPRAZOLE 20MG CAP PO SCH (09:28)
[2021-11-22] MEDS: ASCORBIC ACID 500 MG TAB PO SCH (09:28)
[2021-11-22] MEDS: LORATADINE 10 MG TAB PO SCH (09:28)
[2021-11-22 09:29] VITALS: BP 163/81
[2021-11-22] MEDS: MULTIVITAMINS/MINERALS THERAP 1 TAB PO SCH (09:29)
[2021-11-22] MEDS: VITAMIN D 1,000 INTERNATIONAL UNITS TABLET PO SCH (09:29)
[2021-11-22] MEDS: LIDOCAINE 5% (LIDODERM) PATCH TD SCH (09:30)
[2021-11-22] MEDS: ENOXAPARIN 40MG/0.4ML SYRINGE (J1650 PER 10MG) SC SCH (09:30)
[2021-11-22] MEDS ORDERED: ACET1TAB55 PO (11:41)
[2021-11-22] MEDS ORDERED: RISATAB3 PO (11:41)
[2021-11-22] MEDS ORDERED: COLA100C5 PO (11:41)
[2021-11-22] MEDS ORDERED: CEFU50TA PO (11:45)
[2021-11-22] MEDS: cefTRIAXone SOD 1 GM in D5W MINI-BAG PLUS 50 ML IV SCH (13:10)
== END 2021-11-22 14:50 | disposition home health service (06) | DRG 710 ==
LOC: M ED 20:30 → M ED INP 11-16 00:13 → ENRESERV 11-16 08:52 → M 4MAIN 11-16 09:37 → M MSPAV 11-17 16:01
PROVIDERS: ADMIT Internal Medicine; ATTEND Internal Medicine
PROC: 0RBK4ZZ Excision of Left Shoulder Joint, Percutaneous Endoscopic Approach (ICD-10-PCS; principal; 2021-11-16 14:13)
DX: A40.1 Sepsis due to streptococcus, group B (principal); M00.812 Arthritis due to other bacteria, left shoulder; J44.9 Chronic obstructive pulmonary disease, unspecified; E83.42 Hypomagnesemia; D64.9 Anemia, unspecified; E66.9 Obesity, unspecified; E78.00 Pure hypercholesterolemia, unspecified; E78.5 Hyperlipidemia, unspecified; E87.6 Hypokalemia; I10 Essential (primary) hypertension; K21.9 Gastro-esophageal reflux disease without esophagitis; K57.90 Diverticulosis of intestine, part unspecified, without perforation or abscess without bleeding; M10.9 Gout, unspecified; M79.10 Myalgia, unspecified site; R21 Rash and other nonspecific skin eruption; R33.9 Retention of urine, unspecified; R53.1 Weakness; Z79.899 Other long term (current) drug therapy; Z96.643 Presence of artificial hip joint, bilateral; Z87.891 Personal history of nicotine dependence

== ENCOUNTER → 2021-11-26 | Outpatient (CLI) | payer BC, OTHER ==
[~2021-11-26] MED LIST changes: +ACET1TAB55 PO; +ALLO300T2 PO; +BREO1INH INH; +BUPR-71 PO; +CEFU50TA PO; +COLA100C5 PO; +FISH1000 PO; +HYDR-4514 PO; +INCR1INH INH; +MULT-90 PO; +RISATAB3 PO; +med rec comment
== END ==
LOC: M SOG 09:40
PROVIDERS: ATTEND Orthopaedic Surgery
DX: Z47.89 Encounter for other orthopedic aftercare (principal); M25.551 Pain in right hip; M25.552 Pain in left hip; Z96.653 Presence of artificial knee joint, bilateral

== ENCOUNTER → 2021-11-26 | Outpatient (CLI) | payer BC, OTHER ==
[2021-11-26 11:37] LABS: BASO # 0.2 10^3/uL (0.0-0.2); BASO % 1.3 % (0.0-1.0); EOS # 0.3 10^3/uL (0.0-0.5); EOS % 1.3 % (0.0-3.0); HEMATOCRIT 38.4 % (42.0-52.0); HEMOGLOBIN 12.7 g/dl (13.5-17.5); LYMPH # 2.6 10^3/uL (1.5-5.0); MEAN CORPUSCULAR HEMOGLOBIN 32.2 pg (27.0-33.0); MEAN CORPUSCULAR HGB CONC 33.1 g/dl (32.0-36.5); MEAN CORPUSCULAR VOLUME 97.2 fl (80.0-96.0); MONO % 8.3 % (2.0-8.0); NEUTROPHILS # 13.4 10^3/uL (1.5-8.5); RED BLOOD COUNT 3.95 10^6/uL (4.30-6.10); WHITE BLOOD COUNT 18.6 10^3/uL (4.0-10.0)
[2021-11-26 12:25] LABS: MONO # 1.6 10^3/uL (0.0-0.8); PLATELET COUNT, AUTOMATED 1125 10^3/uL (150-450)
[2021-11-26 15:37] LABS: ERYTHROCYTE SEDIMENTATION RATE 3 mm/hr (0-20)
== END ==
LOC: M LAB 10:44
PROVIDERS: ATTEND Orthopaedic Surgery
DX: M00.812 Arthritis due to other bacteria, left shoulder (principal)

== ENCOUNTER → 2021-12-28 | Outpatient (CLI) | payer BC, OTHER ==
[~2021-12-28] MED LIST changes: -TRIBTAB9 PO; +[UNRECOGNIZED DRUG - CODE] PO
[2021-12-28 12:09] LABS: BASO # 0.1 10^3/uL (0.0-0.2); BASO % 1.1 % (0.0-1.0); EOS # 0.4 10^3/uL (0.0-0.5); EOS % 2.8 % (0.0-3.0); HEMATOCRIT 41.4 % (42.0-52.0); HEMOGLOBIN 13.1 g/dl (13.5-17.5); LYMPH # 2.8 10^3/uL (1.5-5.0); LYMPH % 21.2 % (24.0-44.0); MEAN CORPUSCULAR HGB CONC 31.6 g/dl (32.0-36.5); MEAN CORPUSCULAR VOLUME 94.7 fl (80.0-96.0); MONO # 0.9 10^3/uL (0.0-0.8); MONO % 6.6 % (2.0-8.0); NEUTROPHILS # 8.7 10^3/uL (1.5-8.5); NEUTROPHILS % 66.8 % (36.0-66.0); PLATELET COUNT, AUTOMATED 870 10^3/uL (150-450); RED BLOOD COUNT 4.37 10^6/uL (4.30-6.10)
[2021-12-28 12:36] LABS: ERYTHROCYTE SEDIMENTATION RATE 64 mm/hr (0-20)
== END ==
LOC: M LAB 11:12
PROVIDERS: ATTEND Internal Medicine Infectious Disease
DX: M00.9 Pyogenic arthritis, unspecified (principal); A49.1 Streptococcal infection, unspecified site

== ENCOUNTER → 2022-05-12 | Outpatient (CLI) | payer BC, OTHER | LOC: M RAD 13:23 | PROVIDERS: ATTEND Internal Medicine Pulmonary Disease | DX: Z12.2 Encounter for screening for malignant neoplasm of respiratory organs (principal); F17.210 Nicotine dependence, cigarettes, uncomplicated ==

== ENCOUNTER → 2022-05-28 | Outpatient (CLI) | payer BC, OTHER | LOC: M PLAIMG 12:55 | PROVIDERS: ATTEND Internal Medicine Pulmonary Disease | DX: R91.8 Other nonspecific abnormal finding of lung field (principal) ==

== ENCOUNTER → 2022-06-21 | Outpatient (CLI) | payer BC, OTHER | LOC: M PLARAD 12:47 | PROVIDERS: ATTEND Internal Medicine Pulmonary Disease | DX: R91.8 Other nonspecific abnormal finding of lung field (principal) | CPT/HCPCS: 78815; A9552 ==

== ENCOUNTER → 2022-07-01 | Outpatient (CLI) | payer BC, OTHER | LOC: M CARPUL 12:52 | PROVIDERS: ATTEND Internal Medicine Pulmonary Disease | DX: R91.8 Other nonspecific abnormal finding of lung field (principal); R94.2 Abnormal results of pulmonary function studies ==

== ENCOUNTER → 2022-11-30 | Outpatient (CLI) | payer BC, OTHER ==
[2022-11-30 13:20] LABS: APPEARANCE, URINE CLEAR (CLEAR); BACTERIA, URINE AUTO NEGATIVE (NEGATIVE); BILIRUBIN, URINE AUTO NEGATIVE (NEGATIVE); BLOOD, URINE BLOOD NEGATIVE (NEGATIVE); COLOR, URINE YELLOW (YELLOW); GLUCOSE, URINE (UA) AUTO NEGATIVE (NEGATIVE); KETONE, URINE AUTO NEGATIVE (NEGATIVE); LEUKOCYTE ESTERASE, URINE AUTO NEGATIVE (NEGATIVE); NITRITE, URINE AUTO NEGATIVE (NEGATIVE); PROTEIN, URINE AUTO NEGATIVE (NEGATIVE); RBC, URINE AUTO 1 /HPF (0-3); SPECIFIC GRAVITY URINE AUTO 1.012 (1.002-1.035); SQUAMOUS EPITHELIAL CELL UR AU 1 /HPF (0-6); UROBILINOGEN, URINE AUTO 0.2 mg/dL (0.0-2.0); WBC, URINE AUTO 2 /HPF (0-3)
[2022-11-30 13:31] LABS: HEMATOCRIT 47.1 % (42.0-52.0); HEMOGLOBIN 15.4 g/dl (13.5-17.5); MEAN CORPUSCULAR HEMOGLOBIN 31.5 pg (27.0-33.0); MEAN CORPUSCULAR HGB CONC 32.7 g/dl (32.0-36.5); MEAN CORPUSCULAR VOLUME 96.3 fl (80.0-96.0); PLATELET COUNT, AUTOMATED 621 10^3/uL (150-450); RED BLOOD COUNT 4.89 10^6/uL (4.30-6.10); WHITE BLOOD COUNT 12.3 10^3/uL (4.0-10.0)
[2022-11-30 13:50] LABS: PROSTATIC SPECIFIC AG MONITOR 0.75 NG/ML (< 4.00)
[2022-11-30 13:51] LABS: URIC ACID 4.6 MG/DL (3.7-9.2)
[2022-11-30 13:53] LABS: ALBUMIN 3.7 G/DL (3.2-5.2); ALKALINE PHOSPHATASE 111 U/L (46-116); ALT/SGPT 29 U/L (7.0-40); AST/SGOT 24 U/L (<34); BILIRUBIN,TOTAL 0.4 MG/DL (0.3-1.2); BLOOD UREA NITROGEN 15 MG/DL (9-23); CALCIUM LEVEL 9.5 MG/DL (8.3-10.6); CARBON DIOXIDE LEVEL 26 MMOL/L (20-31); CHLORIDE LEVEL 104 MMOL/L (98-107); CHOLESTEROL LEVEL 128 MG/DL (<200); CHOLESTEROL RISK RATIO 2.11 (<5); CREATININE FOR GFR 0.84 MG/DL (0.70-1.30); GLOMERULAR FILTRATION RATE > 60.0 (>49); GLUCOSE, FASTING 97 MG/DL (74-106); HDL CHOLESTEROL 60.4 MG/DL (>40); LDL CHOLESTEROL 46.8 MG/DL (<100); NON-HDL-C 67.6 MG/DL; SODIUM LEVEL 141 MMOL/L (136-145); TRIGLYCERIDES LEVEL 104 MG/DL (<150)
[2022-11-30 13:55] LABS: THYROID STIMULATING HORMONE 1.194 uIU/ML (0.55-4.78); TOTAL 25(OH) VITAMIN D 42.8 NG/ML (20.0-100.0)
== END ==
LOC: M LAB 12:16
PROVIDERS: ATTEND Physician Assistant
DX: I10 Essential (primary) hypertension (principal); E78.2 Mixed hyperlipidemia; Z12.5 Encounter for screening for malignant neoplasm of prostate; M10.9 Gout, unspecified; E55.9 Vitamin D deficiency, unspecified; R35.1 Nocturia

== ENCOUNTER → 2023-05-26 | Outpatient (CLI) | payer MEDICARE ==
[2023-05-26 11:14] LABS: HEMATOCRIT 42.7 % (42.0-52.0); HEMOGLOBIN 14.1 g/dl (13.5-17.5); PLATELET COUNT, AUTOMATED 573 10^3/uL (150-450); WHITE BLOOD COUNT 11.5 10^3/uL (4.0-10.0)
[2023-05-26 11:51] LABS: ALBUMIN 3.8 G/DL (3.2-5.2); ALKALINE PHOSPHATASE 89 U/L (46-116); ALT/SGPT 30 U/L (7.0-40); AST/SGOT 18 U/L (<34); BILIRUBIN,TOTAL 0.6 MG/DL (0.3-1.2); BLOOD UREA NITROGEN 16 MG/DL (9-23); CALCIUM LEVEL 9.2 MG/DL (8.3-10.6); CARBON DIOXIDE LEVEL 31 MMOL/L (20-31); CHLORIDE LEVEL 105 MMOL/L (98-107); CHOLESTEROL LEVEL 136 MG/DL (<200); CHOLESTEROL RISK RATIO 2.51 (<5); CREATININE FOR GFR 1.01 MG/DL (0.70-1.30); GLOMERULAR FILTRATION RATE > 60.0 (>49); GLUCOSE, FASTING 112 MG/DL (74-106); LDL CHOLESTEROL 60.6 MG/DL (<100); SODIUM LEVEL 139 MMOL/L (136-145); TRIGLYCERIDES LEVEL 107 MG/DL (<150)
== END ==
LOC: M LAB 10:06
PROVIDERS: ATTEND Physician Assistant
DX: E78.2 Mixed hyperlipidemia (principal); I10 Essential (primary) hypertension

== ENCOUNTER → 2023-08-09 | Outpatient (CLI) | payer MEDICARE | LOC: M RAD 14:27 | PROVIDERS: ATTEND Internal Medicine Pulmonary Disease | DX: Z12.2 Encounter for screening for malignant neoplasm of respiratory organs (principal); Z87.891 Personal history of nicotine dependence ==

== ENCOUNTER → 2023-11-25 | Outpatient (CLI) | payer MEDICARE | LOC: M RAD 14:54 | PROVIDERS: ATTEND Internal Medicine Pulmonary Disease | DX: R91.8 Other nonspecific abnormal finding of lung field (principal); J47.9 Bronchiectasis, uncomplicated; J43.2 Centrilobular emphysema; I25.10 Atherosclerotic heart disease of native coronary artery without angina pectoris; R91.1 Solitary pulmonary nodule ==

== ENCOUNTER → 2024-04-10 | Outpatient (CLI) | payer MEDICARE, OTHER ==
[2024-04-10 11:51] LABS: APPEARANCE, URINE CLEAR (CLEAR); BACTERIA, URINE AUTO NEGATIVE (NEGATIVE); BILIRUBIN, URINE AUTO NEGATIVE (NEGATIVE); BLOOD, URINE BLOOD NEGATIVE (NEGATIVE); COLOR, URINE YELLOW (YELLOW); GLUCOSE, URINE (UA) AUTO NEGATIVE (NEGATIVE); KETONE, URINE AUTO NEGATIVE (NEGATIVE); LEUKOCYTE ESTERASE, URINE AUTO NEGATIVE (NEGATIVE); NITRITE, URINE AUTO NEGATIVE (NEGATIVE); PROTEIN, URINE AUTO NEGATIVE (NEGATIVE); RBC, URINE AUTO 1 /HPF (0-3); SQUAMOUS EPITHELIAL CELL UR AU 0 /HPF (0-6); UROBILINOGEN, URINE AUTO 0.2 mg/dL (0.0-2.0); WBC, URINE AUTO 1 /HPF (0-3)
[2024-04-10 11:53] LABS: HEMATOCRIT 45.1 % (42.0-52.0); HEMOGLOBIN 14.2 g/dl (13.5-17.5); MEAN CORPUSCULAR HEMOGLOBIN 26.6 pg (27.0-33.0); MEAN CORPUSCULAR HGB CONC 31.5 g/dl (32.0-36.5); MEAN CORPUSCULAR VOLUME 84.6 fl (80.0-96.0); PLATELET COUNT, AUTOMATED 628 10^3/uL (150-450); RED BLOOD COUNT 5.33 10^6/uL (4.30-6.10); WHITE BLOOD COUNT 12.7 10^3/uL (4.0-10.0)
[2024-04-10 12:19] LABS: URIC ACID 5.1 MG/DL (3.7-9.2)
[2024-04-10 12:22] LABS: ALBUMIN 3.9 G/DL (3.2-5.2); ALKALINE PHOSPHATASE 87 U/L (40-129); ALT/SGPT 26 U/L (7.0-40); AST/SGOT 21 U/L (<34); BILIRUBIN,TOTAL 0.5 MG/DL (0.3-1.2); BLOOD UREA NITROGEN 17 MG/DL (9-23); CALCIUM LEVEL 9.8 MG/DL (8.3-10.6); CARBON DIOXIDE LEVEL 29 MMOL/L (20-31); CHLORIDE LEVEL 101 MMOL/L (98-107); CHOLESTEROL LEVEL 138 MG/DL (<200); CREATININE FOR GFR 0.95 MG/DL (0.70-1.30); GLOMERULAR FILTRATION RATE > 60.0 (>49); GLUCOSE, FASTING 89 MG/DL (74-106); HDL CHOLESTEROL 57.5 MG/DL (>40); LDL CHOLESTEROL 65.7 MG/DL (<100); NON-HDL-C 80.5 MG/DL; POTASSIUM SERUM 5.2 MMOL/L (3.5-5.1); PROSTATIC SPECIFIC AG MONITOR 0.79 NG/ML (< 4.00); SODIUM LEVEL 138 MMOL/L (136-145); TOTAL PROTEIN 7.3 G/DL (5.7-8.2); TRIGLYCERIDES LEVEL 74 MG/DL (<150)
[2024-04-10 12:24] LABS: THYROID STIMULATING HORMONE 1.987 uIU/ML (0.55-4.78); TOTAL 25(OH) VITAMIN D 46.7 NG/ML (20.0-100.0)
== END ==
LOC: M LAB 10:34
PROVIDERS: ATTEND Physician Assistant
DX: I10 Essential (primary) hypertension (principal); E78.2 Mixed hyperlipidemia; E55.9 Vitamin D deficiency, unspecified; M10.9 Gout, unspecified; Z12.5 Encounter for screening for malignant neoplasm of prostate; R35.1 Nocturia

== ENCOUNTER → 2024-07-02 | Outpatient (CLI) | payer MEDICARE, OTHER | LOC: M PLAIMG 14:28 | PROVIDERS: ATTEND Internal Medicine Pulmonary Disease | DX: J47.9 Bronchiectasis, uncomplicated (principal); R91.8 Other nonspecific abnormal finding of lung field ==

== ENCOUNTER → 2024-10-22 | Outpatient (CLI) | payer MEDICARE, OTHER ==
[2024-10-22 11:56] LABS: PLATELET COUNT, AUTOMATED 644 10^3/uL (150-450)
[2024-10-22 12:23] LABS: ALT/SGPT 28.0 U/L (7.0-40); AST/SGOT 26.0 U/L (<34); CALCIUM LEVEL 9.4 MG/DL (8.3-10.6); CARBON DIOXIDE LEVEL 27.0 MMOL/L (20-31); CHLORIDE LEVEL 100.0 MMOL/L (98-107); CHOLESTEROL LEVEL 132.0 MG/DL (<200); CHOLESTEROL RISK RATIO 2.5 (<5); CREATININE FOR GFR 1.01 MG/DL (0.70-1.30); GLOMERULAR FILTRATION RATE 80.0 (>42); LDL CHOLESTEROL 62.6 MG/DL (<100); NON-HDL-C 79.4 MG/DL; POTASSIUM SERUM 5.0 MMOL/L (3.5-5.1); SODIUM LEVEL 138.0 MMOL/L (136-145); TRIGLYCERIDES LEVEL 84.0 MG/DL (<150)
== END ==
LOC: M LAB 11:03
PROVIDERS: ATTEND Physician Assistant
DX: E78.2 Mixed hyperlipidemia (principal); I10 Essential (primary) hypertension

== ENCOUNTER 2024-11-22 11:09 | Inpatient (IN) | payer MEDICARE, OTHER ==
[~2024-11-22] VITALS: Ht 180.3 cm; Wt 127.7 kg
[2024-11-22] MEDS ORDERED: FLUT1BLS2 INH (11:35)
[2024-11-22 11:36] LABS: VENOUS BASE EXCESS 0.2 (-2.0-2.0); VENOUS HCO3 28.5 MMOL/L (23.0-27.0); VENOUS O2 SATURATION 42.8 % (60.0-80.0); VENOUS PARTIAL PRESSURE CO2 61.3 mmHg (38.0-50.0); VENOUS PARTIAL PRESSURE O2 27.5 mmHg (30.0-50.0); VENOUS PH 7.286 UNITS (7.330-7.430); VENOUS STANDARD HCO3 23.2 MMOL/L; VENOUS TOTAL CO2 30.4 MMOL/L (24.0-28.0)
[2024-11-22 11:46] LABS: BASO # 0.4 10^3/uL (0.0-0.2); BASO % 1.5 % (0.0-1.0); EOS # 0.5 10^3/uL (0.0-0.5); EOS % 1.7 % (0.0-3.0); LYMPH # 3.2 10^3/uL (1.5-5.0); LYMPH % 12.1 % (24.0-44.0); MONO # 1.4 10^3/uL (0.0-0.8); MONO % 5.1 % (2.0-8.0); NEUTROPHILS # 19.5 10^3/uL (1.5-8.5); NEUTROPHILS % 73.8 % (36.0-66.0)
[2024-11-22] MEDS: IPRATROPIUM 0.5 MG/ALBUTEROL 2.5 MG INH SOL UD 3 ML NEB PRN (11:49)
[2024-11-22 12:06] LABS: ALT/SGPT 27.0 U/L (7.0-40); AST/SGOT 22.0 U/L (<34); CALCIUM LEVEL 9.5 MG/DL (8.3-10.6); CARBON DIOXIDE LEVEL 28.0 MMOL/L (20-31); CHLORIDE LEVEL 96.0 MMOL/L (98-107); CREATININE FOR GFR 1.12 MG/DL (0.70-1.30); GLOMERULAR FILTRATION RATE 70.7 (>42); POTASSIUM SERUM 4.9 MMOL/L (3.5-5.1); SODIUM LEVEL 137.0 MMOL/L (136-145)
[2024-11-22] MEDS: cefTRIAXone SOD 2 GM in DEXTROSE 5% (D5W) ADV/MINI-BAG 50 ML IV ONE (12:17)
[2024-11-22] MEDS ORDERED: ISOVUE-370 76% 100 ML VIAL As Ordered ONE (12:36)
[2024-11-22] MEDS: DOXYCYCLINE HYCLATE 100 MG in DEXTROSE 5% (D5W) MINI-BAG PLU 100 ML IV ONE (13:12)
[2024-11-22] MEDS ORDERED: OMEG10002 PO (14:20)
[2024-11-22] MEDS ORDERED: HOME MED LIST COMPLETE! XX SCH (14:20)
[2024-11-22] MEDS ORDERED: ALPR0.25 PO (14:20)
[2024-11-22] MEDS ORDERED: IPRATROPIUM 0.5 MG/ALBUTEROL 2.5 MG INH SOL UD 3 ML NEB PRN (16:50)
[2024-11-22] MEDS ORDERED: FLUID PLACE HOLDER IV SCH (16:50)
[2024-11-22] MEDS ORDERED: VANCOMYCIN HCL IV ONE (16:50)
[2024-11-22] MEDS ORDERED: VANCOMYCIN HCL IV SCH (16:50)
[2024-11-22] MEDS ORDERED: FLUID PLACE HOLDER IV ONE (16:50)
[2024-11-22] MEDS: CEFEPIME HCL 2 GM in DEXTROSE 5% (D5W) ADV/MINI-BAG 50 ML IV SCH (19:30)
[2024-11-22] MEDS: VANCOMYCIN HCL 2,000 MG, VIAL MATE ADAPTER 1 EACH in NS 500 ML IV ONE (19:30)
[2024-11-22] MEDS: IPRATROPIUM 0.5 MG/ALBUTEROL 2.5 MG INH SOL UD 3 ML NEB SCH (19:38)
[2024-11-22] MEDS: OMEPRAZOLE 20MG CAP PO SCH (21:13)
[2024-11-23] MEDS: HYDROCORTISONE 100 MG/2 ML VIAL IV SCH (00:31)
[2024-11-23] MEDS ORDERED: DOXYCYCLINE HYCLATE 100 MG in DEXTROSE 5% (D5W) MINI-BAG PLU 100 ML IV SCH (01:00)
[2024-11-23] MEDS: VANCOMYCIN HCL 1,000 MG, VIAL MATE ADAPTER 1 EACH in NS 250 ML IV SCH (07:12)
[2024-11-23 07:30] VITALS: O2SAT 90
[2024-11-23 08:58] LABS: PLATELET COUNT, AUTOMATED 1062 10^3/uL (150-450)
[2024-11-23 09:22] LABS: ALT/SGPT 25.0 U/L (7.0-40); AST/SGOT 46.0 U/L (<34); CALCIUM LEVEL 9.2 MG/DL (8.3-10.6); CARBON DIOXIDE LEVEL 25.0 MMOL/L (20-31); CHLORIDE LEVEL 99.0 MMOL/L (98-107); CREATININE FOR GFR 1.25 MG/DL (0.70-1.30); GLOMERULAR FILTRATION RATE 62.0 (>42); POTASSIUM SERUM 5.3 MMOL/L (3.5-5.1); SODIUM LEVEL 136.0 MMOL/L (136-145)
[2024-11-23] MEDS: buPROPion **SR** 150 MG TABLET PO SCH (09:48)
[2024-11-23] MEDS: ENOXAPARIN 40 MG/0.4 ML SYRINGE (J1650 PER 10MG) SC SCH (09:49)
[2024-11-23] MEDS: ATORVASTATIN 10 MG TAB PO SCH (09:49)
[2024-11-23] MEDS: LORATADINE 10 MG TAB PO SCH (09:49)
[2024-11-23] MEDS ORDERED: cefTRIAXone SOD 2 GM in DEXTROSE 5% (D5W) ADV/MINI-BAG 50 ML IV SCH (12:00)
[2024-11-23 14:52] LABS: BASO # 0.1 10^3/uL (0.0-0.2); BASO % 0.1 % (0.0-1.0); EOS # 0.0 10^3/uL (0.0-0.5); EOS % 0.0 % (0.0-3.0); LYMPH # 1.4 10^3/uL (1.5-5.0); LYMPH % 2.6 % (24.0-44.0); MONO # 2.5 10^3/uL (0.0-0.8); MONO % 4.5 % (2.0-8.0); NEUTROPHILS # 48.5 10^3/uL (1.5-8.5); NEUTROPHILS % 87.4 % (36.0-66.0)
[2024-11-23 14:56] LABS: PLATELET COUNT, AUTOMATED 1354 10^3/uL (150-450)
[2024-11-23 15:26] LABS: ALT/SGPT 27.0 U/L (7.0-40); AST/SGOT 38.0 U/L (<34); CALCIUM LEVEL 9.2 MG/DL (8.3-10.6); CARBON DIOXIDE LEVEL 23.0 MMOL/L (20-31); CHLORIDE LEVEL 99.0 MMOL/L (98-107); CREATININE FOR GFR 1.17 MG/DL (0.70-1.30); GLOMERULAR FILTRATION RATE 67.1 (>42); POTASSIUM SERUM 5.1 MMOL/L (3.5-5.1); SODIUM LEVEL 137.0 MMOL/L (136-145)
[2024-11-23] MEDS: FUROSEMIDE 40 MG/4 ML VIAL IV ONE (16:11)
[2024-11-23 16:45] VITALS: BP 121/56; TEMP 98.1; O2SAT 96
[2024-11-23 17:06] LABS: ERYTHROCYTE SEDIMENTATION RATE > 130 mm/hr (0-20)
[2024-11-23] MEDS: ASPIRIN 81 MG CHEWABLE TABLET PO ONE (17:15)
[2024-11-23 17:19] LABS: C REACTIVE PROTEIN QUANTITATIV 39.9 MG/DL (<1.0)
[2024-11-23 20:01] VITALS: BP 121/56; TEMP 97.1; O2SAT 95
[2024-11-23 23:44] VITALS: BP 123/62; TEMP 97; O2SAT 96
[2024-11-24] VITALS (12 sets, daily range): BP systolic 117–139; BP diastolic 55–69; TEMP 97–98.3; O2SAT 92–96
[2024-11-24 06:40] LABS: PLATELET COUNT, AUTOMATED 1138 10^3/uL (150-450)
[2024-11-24 06:56] LABS: VANCOMYCIN LEVEL TROUGH 11.8 UG/ML (10.0-20.0)
[2024-11-24 06:59] LABS: ALT/SGPT 45.0 U/L (7.0-40); AST/SGOT 50.0 U/L (<34); CALCIUM LEVEL 9.2 MG/DL (8.3-10.6); CARBON DIOXIDE LEVEL 25.0 MMOL/L (20-31); CHLORIDE LEVEL 98.0 MMOL/L (98-107); CREATININE FOR GFR 1.03 MG/DL (0.70-1.30); GLOMERULAR FILTRATION RATE 78.2 (>42); POTASSIUM SERUM 5.2 MMOL/L (3.5-5.1); SODIUM LEVEL 137.0 MMOL/L (136-145)
[2024-11-24 07:26] LABS: ATYPICAL LYMPH 2 % (0-5); LYMPHOCYTES 3 % (16-44); METAMYELOCYTES 1 % (0-0); MONOCYTES 3 % (0-5); NEUTROPHILS 87 % (28-66)
[2024-11-24 07:27] LABS: PLATELET ESTIMATE INCREASED (NORMAL)
[2024-11-24] MEDS: ASPIRIN 81 MG CHEWABLE TABLET PO SCH (08:57)
[2024-11-24] MEDS: VANCOMYCIN HCL 1,250 MG, VIAL MATE ADAPTER 1 EACH in NS 250 ML IV SCH (18:05)
[2024-11-25] VITALS (7 sets, daily range): BP systolic 124–157; BP diastolic 64–81; TEMP 97.5–98.3; O2SAT 90–95
[2024-11-25 05:18] LABS: PLATELET COUNT, AUTOMATED 1190 10^3/uL (150-450)
[2024-11-25 05:29] LABS: ALT/SGPT 62.0 U/L (7.0-40); AST/SGOT 55.0 U/L (<34); CALCIUM LEVEL 9.4 MG/DL (8.3-10.6); CARBON DIOXIDE LEVEL 23.0 MMOL/L (20-31); CHLORIDE LEVEL 100.0 MMOL/L (98-107); CREATININE FOR GFR 0.93 MG/DL (0.70-1.30); GLOMERULAR FILTRATION RATE 88.3 (>42); POTASSIUM SERUM 5.3 MMOL/L (3.5-5.1); SODIUM LEVEL 136.0 MMOL/L (136-145)
[2024-11-25 05:41] LABS: LYMPHOCYTES 2 % (16-44); MONOCYTES 3 % (0-5); NEUTROPHILS 85 % (28-66)
[2024-11-25 05:42] LABS: PLATELET ESTIMATE INCREASED (NORMAL)
[2024-11-26 03:33] VITALS: BP 146/71; TEMP 97.2; O2SAT 92
[2024-11-26 06:00] VITALS: BP 146/71; TEMP 97.2; O2SAT 92
[2024-11-26 06:02] LABS: BASO # 0.0 10^3/uL (0.0-0.2); BASO % 0.1 % (0.0-1.0); EOS # 0.0 10^3/uL (0.0-0.5); EOS % 0.1 % (0.0-3.0); LYMPH # 1.2 10^3/uL (1.5-5.0); LYMPH % 4.0 % (24.0-44.0); MONO # 1.3 10^3/uL (0.0-0.8); MONO % 4.4 % (2.0-8.0); NEUTROPHILS # 24.6 10^3/uL (1.5-8.5); NEUTROPHILS % 82.5 % (36.0-66.0)
[2024-11-26 06:06] LABS: PLATELET COUNT, AUTOMATED 1063 10^3/uL (150-450)
[2024-11-26 06:25] LABS: ALT/SGPT 87 U/L (7.0-40); AST/SGOT 60 U/L (<34); CALCIUM LEVEL 8.7 MG/DL (8.3-10.6); CARBON DIOXIDE LEVEL 26 MMOL/L (20-31); CHLORIDE LEVEL 103 MMOL/L (98-107); CREATININE FOR GFR 0.85 MG/DL (0.70-1.30); GLOMERULAR FILTRATION RATE > 90.0 (>42); POTASSIUM SERUM 5.5 MMOL/L (3.5-5.1); SODIUM LEVEL 139 MMOL/L (136-145)
[2024-11-26 07:58] VITALS: BP 150/80; TEMP 97.4; O2SAT 94
[2024-11-26 15:48] VITALS: BP 152/68; TEMP 98.4; O2SAT 98
[2024-11-26 20:41] VITALS: BP 153/65; TEMP 97.9; O2SAT 92
[2024-11-26 23:29] VITALS: BP 153/65; TEMP 97.6; O2SAT 93
[2024-11-27] VITALS (24 sets, daily range): BP systolic 158–174; BP diastolic 62–94; TEMP 97.3–98.1; O2SAT 84–95
[2024-11-27 00:09] LABS: CALCIUM LEVEL 8.9 MG/DL (8.3-10.6); CARBON DIOXIDE LEVEL 23 MMOL/L (20-31); CHLORIDE LEVEL 102 MMOL/L (98-107); CREATININE FOR GFR 0.86 MG/DL (0.70-1.30); GLOMERULAR FILTRATION RATE > 90.0 (>42); MAGNESIUM LEVEL 1.7 MG/DL (1.8-2.4); POTASSIUM SERUM 5.5 MMOL/L (3.5-5.1); SODIUM LEVEL 137 MMOL/L (136-145)
[2024-11-27] MEDS: MAG SULF 1GM/100ML (MAG RUN) 1 GM in IV 1 EA IV ONE (00:31)
[2024-11-27] MEDS: PATIROMER SORBITEX CALCIUM 8.4GM POWDER PACKET PO ONE ×3 (00:31→16:38)
[2024-11-27 06:00] LABS: BASO # 0.1 10^3/uL (0.0-0.2); BASO % 0.2 % (0.0-1.0); EOS # 0.0 10^3/uL (0.0-0.5); EOS % 0.1 % (0.0-3.0); LYMPH # 1.3 10^3/uL (1.5-5.0); LYMPH % 4.8 % (24.0-44.0); MONO # 1.9 10^3/uL (0.0-0.8); MONO % 6.9 % (2.0-8.0); NEUTROPHILS # 21.5 10^3/uL (1.5-8.5); NEUTROPHILS % 76.3 % (36.0-66.0)
[2024-11-27 06:01] LABS: PLATELET COUNT, AUTOMATED 1110 10^3/uL (150-450)
[2024-11-27 06:10] LABS: ALT/SGPT 79 U/L (7.0-40); AST/SGOT 48 U/L (<34); CALCIUM LEVEL 9.8 MG/DL (8.3-10.6); CARBON DIOXIDE LEVEL 26 MMOL/L (20-31); CHLORIDE LEVEL 104 MMOL/L (98-107); CREATININE FOR GFR 0.88 MG/DL (0.70-1.30); GLOMERULAR FILTRATION RATE > 90.0 (>42); POTASSIUM SERUM 5.3 MMOL/L (3.5-5.1); SODIUM LEVEL 138 MMOL/L (136-145)
[2024-11-27] MEDS ORDERED: CALCIUM GLUCONATE 1,000 MG in DEXTROSE 5% (D5W) MINI-BAG PLU 100 ML IV ONE (08:20)
[2024-11-27] MEDS: FUROSEMIDE 40 MG/4 ML VIAL IV ONE (08:47)
[2024-11-27] MEDS: amLODIPine 5 MG TAB PO ONE (08:59)
[2024-11-27] MEDS ORDERED: LOSARTAN 25 MG TAB PO SCH (09:00)
[2024-11-28] VITALS (23 sets, daily range): BP systolic 151–172; BP diastolic 68–81; TEMP 98–99.3; O2SAT 92–95
[2024-11-28 05:51] LABS: PLATELET COUNT, AUTOMATED 1288 10^3/uL (150-450)
[2024-11-28 06:16] LABS: ALT/SGPT 84 U/L (7.0-40); AST/SGOT 57 U/L (<34); CALCIUM LEVEL 10.3 MG/DL (8.3-10.6); CARBON DIOXIDE LEVEL 24 MMOL/L (20-31); CHLORIDE LEVEL 102 MMOL/L (98-107); CREATININE FOR GFR 0.90 MG/DL (0.70-1.30); GLOMERULAR FILTRATION RATE > 90.0 (>42); POTASSIUM SERUM 5.1 MMOL/L (3.5-5.1); SODIUM LEVEL 137 MMOL/L (136-145)
[2024-11-28 06:46] LABS: ATYPICAL LYMPH 3 % (0-5); LYMPHOCYTES 6 % (16-44); METAMYELOCYTES 2 % (0-0); MONOCYTES 8 % (0-5); NEUTROPHILS 78 % (28-66)
[2024-11-28 06:47] LABS: PLATELET ESTIMATE INCREASED (NORMAL)
[2024-11-28] MEDS: DOCUSATE SODIUM 100 MG CAPSULE PO SCH (09:00)
[2024-11-28] MEDS: MOM 30 ML SUSPENSION UDC PO SCH (09:00)
[2024-11-28] MEDS: amLODIPine 10 MG TAB PO ONE (09:45)
[2024-11-28] MEDS ORDERED: MIDAZOLAM INJ 2 MG/2 ML VIAL As Ordered ONE (09:55)
[2024-11-28] MEDS ORDERED: LIDOCAINE 1% MDV 20 ML VIAL As Ordered ONE (09:55)
[2024-11-28] MEDS ORDERED: FLUMAZENIL 0.5 MG/5 ML VIAL As Ordered ONE (09:56)
[2024-11-28] MEDS ORDERED: BISACODYL 10 MG SUPP PR PRN (10:15)
[2024-11-28] MEDS ORDERED: ONDANSETRON 4MG 2ML VIAL IV PRN (10:15)
[2024-11-28 10:45] LABS: LDH LACTATE DEHYDROGENASE 339 U/L (120-246)
[2024-11-28 13:00] LABS: PH BODY FLUID 7.302 UNITS (NOT ESTABLISHED); SOURCE, BODY FLUID pH PLEURAL
[2024-11-28 13:01] LABS: SOURCE, BODY FLUID ALBUMIN PLEURAL
[2024-11-28] MEDS: KETOROLAC 30 MG/ML 1 ML VIAL IV SCH (13:02)
[2024-11-28 13:03] LABS: PLEURAL FL COLOR YELLOW (COLORLESS); SOURCE, BODY FLUID PLEURAL
[2024-11-28 13:04] LABS: APPEARANCE, BODY FLUID CLOUDY (CLEAR)
[2024-11-28 13:06] LABS: SOURCE, BODY FLUID GLUCOSE PLEURAL; SOURCE, BODY FLUID TOT PROTEIN PLEURAL; SOURCE, BODY FLUID TRIG PLEURAL; TRIGLYCERIDE, BODY FLUID 40 MG/DL (NOT ESTABLISHED)
[2024-11-28 13:08] LABS: AMYLASE, BODY FLUID 28 U/L (NOT ESTABLISHED); CHOLESTEROL, BODY FLUID 70 MG/DL (NOT ESTABLISHED); SOURCE, BODY FLUID AMYLASE PLEURAL; SOURCE, BODY FLUID CHOL PLEURAL
[2024-11-28 13:17] LABS: LDH, BODY FLUID > 750 U/L (NOT ESTABLISHED); SOURCE, BODY FLUID LDH PLEURAL
[2024-11-28] MEDS: LEVALBUTEROL 1.25 MG 0.5ML CONCENTRATE NEB NEB PRN (13:42)
[2024-11-28] MEDS: LEVALBUTEROL 1.25 MG 0.5ML CONCENTRATE NEB NEB SCH (13:42)
[2024-11-29] VITALS (40 sets, daily range): BP systolic 134–160; BP diastolic 67–87; TEMP 96.6–98.7; O2SAT 83–98
[2024-11-29 00:17] LABS: MYCOPLASMA PNEUMONIAE IGG 2.35 (<=0.90); MYCOPLASMA PNEUMONIAE IGM 153.0 U/mL (<770)
[2024-11-29 05:14] LABS: ABG BASE EXCESS -3.0 (-2.0-2.0); ABG HCO3 20.6 MMOL/L (22.0-26.0); ABG O2 SATURATION 97.8 % (95.0-99.0); ABG PARTIAL PRESSURE CO2 32.9 mmHg (35.0-45.0); ABG PARTIAL PRESSURE O2 101.2 mmHg (75.0-100.0); ABG STANDARD HCO3 22.0 MMOL/L. (22.0-26.0); ABG TOTAL CO2 21.6 MMOL/L (23.0-31.0); ABG pH (ARTERIAL) 7.415 UNITS (7.350-7.450)
[2024-11-29 05:45] LABS: BASO # 0.0 10^3/uL (0.0-0.2); BASO % 0.1 % (0.0-1.0); EOS # 0.1 10^3/uL (0.0-0.5); EOS % 0.4 % (0.0-3.0); LYMPH # 1.7 10^3/uL (1.5-5.0); LYMPH % 6.4 % (24.0-44.0); MONO # 1.8 10^3/uL (0.0-0.8); MONO % 6.5 % (2.0-8.0); NEUTROPHILS # 19.4 10^3/uL (1.5-8.5); NEUTROPHILS % 72.0 % (36.0-66.0)
[2024-11-29 06:03] LABS: PLATELET COUNT, AUTOMATED 1002 10^3/uL (150-450)
[2024-11-29 06:15] LABS: ALT/SGPT 80.0 U/L (7.0-40); AST/SGOT 53.0 U/L (<34); CALCIUM LEVEL 9.3 MG/DL (8.3-10.6); CARBON DIOXIDE LEVEL 25.0 MMOL/L (20-31); CHLORIDE LEVEL 103.0 MMOL/L (98-107); CREATININE FOR GFR 1.02 MG/DL (0.70-1.30); GLOMERULAR FILTRATION RATE 79.1 (>42); POTASSIUM SERUM 4.7 MMOL/L (3.5-5.1); SODIUM LEVEL 137.0 MMOL/L (136-145)
[2024-11-29] MEDS: amLODIPine 10 MG TAB PO ONE (06:18)
[2024-11-29 07:32] LABS: CHOLESTEROL LEVEL 132 MG/DL (<200); CHOLESTEROL RISK RATIO 5.45 (<5); LDL CHOLESTEROL 64.4 MG/DL (<100); NON-HDL-C 107.8 MG/DL; TRIGLYCERIDES LEVEL 217 MG/DL (<150)
[2024-11-29 08:08] LABS: HEPATITIS C VIRUS ABY INDEX 0.04 INDEX (<0.8)
[2024-11-29] MEDS: PANTOPRAZOLE 40MG TAB PO SCH (10:32)
[2024-11-29] MEDS: predniSONE 10 MG TAB PO SCH (10:33)
[2024-11-29 11:50] LABS: APPEARANCE, URINE CLEAR (CLEAR); BACTERIA, URINE AUTO NEGATIVE (NEGATIVE); BILIRUBIN, URINE AUTO NEGATIVE (NEGATIVE); BLOOD, URINE BLOOD 1+ (NEGATIVE); GLUCOSE, URINE (UA) AUTO NEGATIVE (NEGATIVE); KETONE, URINE AUTO NEGATIVE (NEGATIVE); LEUKOCYTE ESTERASE, URINE AUTO NEGATIVE (NEGATIVE); NITRITE, URINE AUTO NEGATIVE (NEGATIVE); PROTEIN, URINE AUTO NEGATIVE (NEGATIVE); RBC, URINE AUTO 0 /HPF (0-3); SPECIFIC GRAVITY URINE AUTO 1.009 (1.002-1.035); SQUAMOUS EPITHELIAL CELL UR AU 0 /HPF (0-6); UROBILINOGEN, URINE AUTO 0.2 mg/dL (0.0-2.0); WBC, URINE AUTO 1 /HPF (0-3)
[2024-11-29] MEDS: NYSTATIN 500,000 UNITS/5 ML SUSP UDC SS SCH (18:23)
[2024-11-30] VITALS (29 sets, daily range): BP systolic 143–158; BP diastolic 67–80; TEMP 97.2–98.7; O2SAT 90–99
[2024-11-30 05:58] LABS: BASO # 0.0 10^3/uL (0.0-0.2); BASO % 0.2 % (0.0-1.0); EOS # 0.5 10^3/uL (0.0-0.5); EOS % 1.9 % (0.0-3.0); LYMPH # 2.3 10^3/uL (1.5-5.0); LYMPH % 9.2 % (24.0-44.0); MONO # 2.1 10^3/uL (0.0-0.8); MONO % 8.3 % (2.0-8.0); NEUTROPHILS # 16.4 10^3/uL (1.5-8.5); NEUTROPHILS % 66.0 % (36.0-66.0); PLATELET COUNT, AUTOMATED 943 10^3/uL (150-450)
[2024-11-30 06:28] LABS: ALT/SGPT 76.0 U/L (7.0-40); AST/SGOT 47.0 U/L (<34); CALCIUM LEVEL 9.8 MG/DL (8.3-10.6); CARBON DIOXIDE LEVEL 28.0 MMOL/L (20-31); CHLORIDE LEVEL 103.0 MMOL/L (98-107); CREATININE FOR GFR 1.04 MG/DL (0.70-1.30); GLOMERULAR FILTRATION RATE 77.3 (>42); POTASSIUM SERUM 5.1 MMOL/L (3.5-5.1); SODIUM LEVEL 140.0 MMOL/L (136-145)
[2024-11-30] MEDS: ACETAMINOPHEN 325 MG TAB PO PRN (08:45)
[2024-12-01] VITALS (34 sets, daily range): BP systolic 123–156; BP diastolic 64–93; TEMP 97.9–98.8; O2SAT 86–96
[2024-12-01] MEDS: PERCOCET 5MG/325MG TAB PO PRN (01:56)
[2024-12-01 06:04] LABS: PLATELET COUNT, AUTOMATED 885 10^3/uL (150-450)
[2024-12-01 06:41] LABS: CALCIUM LEVEL 8.6 MG/DL (8.3-10.6); CARBON DIOXIDE LEVEL 27.0 MMOL/L (20-31); CHLORIDE LEVEL 104.0 MMOL/L (98-107); CREATININE FOR GFR 0.93 MG/DL (0.70-1.30); GLOMERULAR FILTRATION RATE 88.3 (>42); POTASSIUM SERUM 4.6 MMOL/L (3.5-5.1); SODIUM LEVEL 139.0 MMOL/L (136-145)
[2024-12-01 07:20] LABS: VENOUS BASE EXCESS -0.4 (-2.0-2.0); VENOUS HCO3 25.3 MMOL/L (23.0-27.0); VENOUS O2 SATURATION 96.4 % (60.0-80.0); VENOUS PARTIAL PRESSURE CO2 45.2 mmHg (38.0-50.0); VENOUS PARTIAL PRESSURE O2 87.0 mmHg (30.0-50.0); VENOUS PH 7.366 UNITS (7.330-7.430); VENOUS STANDARD HCO3 24.1 MMOL/L; VENOUS TOTAL CO2 26.7 MMOL/L (24.0-28.0)
[2024-12-01] MEDS: FUROSEMIDE 40 MG/4 ML VIAL IV ONE (09:23)
[2024-12-02] VITALS (30 sets, daily range): BP systolic 127–159; BP diastolic 59–74; TEMP 97.5–98.2; O2SAT 86–96
[2024-12-02 06:21] LABS: CALCIUM LEVEL 8.5 MG/DL (8.3-10.6); CARBON DIOXIDE LEVEL 29.0 MMOL/L (20-31); CHLORIDE LEVEL 100.0 MMOL/L (98-107); CREATININE FOR GFR 0.95 MG/DL (0.70-1.30); GLOMERULAR FILTRATION RATE 86.1 (>42); POTASSIUM SERUM 4.6 MMOL/L (3.5-5.1); SODIUM LEVEL 136.0 MMOL/L (136-145)
[2024-12-02 07:20] LABS: PLATELET COUNT, AUTOMATED 795 10^3/uL (150-450)
[2024-12-02 07:52] LABS: ATYPICAL LYMPH 2 % (0-5); EOSINOPHILS 2 % (0-3); LYMPHOCYTES 8 % (16-44); METAMYELOCYTES 1 % (0-0); MONOCYTES 9 % (0-5); NEUTROPHILS 76 % (28-66); PLATELET CLUMPS SMALL AMT; PLATELET ESTIMATE INCREASED (NORMAL)
[2024-12-02] MEDS ORDERED: AMPICILLIN SOD/SULBACTAM SOD 3 GM in DEXTROSE 5% (D5W) MINI-BAG PLU 100 ML IV SCH (11:25)
[2024-12-02] MEDS: FUROSEMIDE 40 MG/4 ML VIAL IV ONE (12:43)
[2024-12-02] MEDS: PIPERACILLIN/TAZOBACTAM SOD 4.5 GM in DEXTROSE 5% (D5W) ADV/MINI-BAG 50 ML IV SCH (14:25)
[2024-12-02] MEDS: VITAMIN A & D OINTMENT 42.5GM TOP SCH (20:24)
[2024-12-03] VITALS (27 sets, daily range): BP systolic 127–150; BP diastolic 58–94; TEMP 97.2–98.9; O2SAT 89–97
[2024-12-03 06:00] LABS: BASO # 0.1 10^3/uL (0.0-0.2); BASO % 0.2 % (0.0-1.0); EOS # 0.3 10^3/uL (0.0-0.5); EOS % 1.0 % (0.0-3.0); LYMPH # 2.2 10^3/uL (1.5-5.0); LYMPH % 6.7 % (24.0-44.0); MONO # 2.4 10^3/uL (0.0-0.8); MONO % 7.3 % (2.0-8.0); NEUTROPHILS # 25.9 10^3/uL (1.5-8.5); NEUTROPHILS % 79.5 % (36.0-66.0); PLATELET COUNT, AUTOMATED 718 10^3/uL (150-450)
[2024-12-03 06:22] LABS: CALCIUM LEVEL 9.0 MG/DL (8.3-10.6); CARBON DIOXIDE LEVEL 28 MMOL/L (20-31); CHLORIDE LEVEL 103 MMOL/L (98-107); CREATININE FOR GFR 0.87 MG/DL (0.70-1.30); GLOMERULAR FILTRATION RATE > 90.0 (>42); POTASSIUM SERUM 4.2 MMOL/L (3.5-5.1); SODIUM LEVEL 141 MMOL/L (136-145)
[2024-12-03] MEDS: PERCOCET 5MG/325MG TAB PO PRN (08:25)
[2024-12-04] VITALS (41 sets, daily range): BP systolic 121–159; BP diastolic 57–70; TEMP 96.8–98.2; O2SAT 89–98
[2024-12-04 06:08] LABS: BASO # 0.1 10^3/uL (0.0-0.2); BASO % 0.2 % (0.0-1.0); EOS # 0.5 10^3/uL (0.0-0.5); EOS % 1.7 % (0.0-3.0); LYMPH # 2.5 10^3/uL (1.5-5.0); LYMPH % 8.8 % (24.0-44.0); MONO # 2.5 10^3/uL (0.0-0.8); MONO % 8.8 % (2.0-8.0); NEUTROPHILS # 21.4 10^3/uL (1.5-8.5); NEUTROPHILS % 75.6 % (36.0-66.0)
[2024-12-04 06:09] LABS: PLATELET COUNT, AUTOMATED 844 10^3/uL (150-450)
[2024-12-04 06:28] LABS: CALCIUM LEVEL 8.8 MG/DL (8.3-10.6); CARBON DIOXIDE LEVEL 28.0 MMOL/L (20-31); CHLORIDE LEVEL 101.0 MMOL/L (98-107); CREATININE FOR GFR 0.96 MG/DL (0.70-1.30); GLOMERULAR FILTRATION RATE 85.0 (>42); POTASSIUM SERUM 4.6 MMOL/L (3.5-5.1); SODIUM LEVEL 139.0 MMOL/L (136-145)
[2024-12-04] MEDS: TUBERCULIN PPD 5 UNITS/0.1 ML ID ONE (10:09)
[2024-12-04] MEDS ORDERED: TUBERCULIN PPD 5 UNITS/0.1 ML ID ONE (11:00)
[2024-12-05] VITALS (27 sets, daily range): BP systolic 140–160; BP diastolic 67–75; TEMP 96.8–97.9; O2SAT 90–95
[2024-12-05 06:03] LABS: BASO # 0.1 10^3/uL (0.0-0.2); BASO % 0.2 % (0.0-1.0); EOS # 0.4 10^3/uL (0.0-0.5); EOS % 1.7 % (0.0-3.0); LYMPH # 2.3 10^3/uL (1.5-5.0); LYMPH % 9.6 % (24.0-44.0); MONO # 2.3 10^3/uL (0.0-0.8); MONO % 9.3 % (2.0-8.0); NEUTROPHILS # 18.0 10^3/uL (1.5-8.5); NEUTROPHILS % 74.0 % (36.0-66.0); PLATELET COUNT, AUTOMATED 860 10^3/uL (150-450)
[2024-12-06] VITALS (20 sets, daily range): BP systolic 131–146; BP diastolic 58–66; TEMP 97–97.9; O2SAT 89–96
[2024-12-06 05:49] LABS: BASO # 0.2 10^3/uL (0.0-0.2); BASO % 1.1 % (0.0-1.0); EOS # 0.4 10^3/uL (0.0-0.5); EOS % 1.8 % (0.0-3.0); LYMPH # 2.0 10^3/uL (1.5-5.0); LYMPH % 10.0 % (24.0-44.0); MONO # 2.1 10^3/uL (0.0-0.8); MONO % 10.3 % (2.0-8.0); NEUTROPHILS # 14.4 10^3/uL (1.5-8.5); NEUTROPHILS % 71.9 % (36.0-66.0)
[2024-12-06 06:05] LABS: PLATELET COUNT, AUTOMATED 756 10^3/uL (150-450)
[2024-12-06] MEDS ORDERED: PPD DOCUMENTATION ENTRY MISC XX SCH (10:00)
[2024-12-06] MEDS: PPD DOCUMENTATION ENTRY MISC XX ONE (11:03)
[2024-12-06 13:10] LABS: PH BODY FLUID 7.533 UNITS (NOT ESTABLISHED); SOURCE, BODY FLUID pH PLEURAL
[2024-12-06 13:28] LABS: APPEARANCE, BODY FLUID CLOUDY (CLEAR); PLEURAL FL COLOR YELLOW (COLORLESS); SOURCE, BODY FLUID PLEURAL
[2024-12-06 13:32] LABS: SOURCE, BODY FLUID ALBUMIN PLEURAL
[2024-12-06 13:37] LABS: SOURCE, BODY FLUID GLUCOSE PLEURAL; SOURCE, BODY FLUID TRIG PLEURAL; TRIGLYCERIDE, BODY FLUID 64 MG/DL (NOT ESTABLISHED)
[2024-12-06 13:38] LABS: SOURCE, BODY FLUID TOT PROTEIN PLEURAL
[2024-12-06 13:39] LABS: AMYLASE, BODY FLUID 48 U/L (NOT ESTABLISHED); CHOLESTEROL, BODY FLUID 65 MG/DL (NOT ESTABLISHED); SOURCE, BODY FLUID AMYLASE PLEURAL; SOURCE, BODY FLUID CHOL PLEURAL
[2024-12-06 13:49] LABS: LDH, BODY FLUID > 750 U/L (NOT ESTABLISHED); SOURCE, BODY FLUID LDH PLEURAL
[2024-12-06] MEDS: KETOROLAC 30 MG/ML 1 ML VIAL IV SCH (14:58)
[2024-12-06 20:37] LABS: ALDOS/RENIN RATIO 0.7 Ratio (0.9-28.9); ALDOSTERONE LC 1 ng/dL (see note); RENIN ACTIVITY 1.35 ng/mL/h (0.25-5.82)
[2024-12-06] MEDS: ALPRAZolam 0.25 MG TAB PO PRN (20:57)
[2024-12-07] VITALS (28 sets, daily range): BP systolic 123–159; BP diastolic 60–74; TEMP 96.9–97.2; O2SAT 85–97
[2024-12-07 05:58] LABS: PLATELET COUNT, AUTOMATED 629 10^3/uL (150-450)
[2024-12-07 06:15] LABS: ALT/SGPT 33 U/L (7.0-40); AST/SGOT 18 U/L (<34); CALCIUM LEVEL 8.7 MG/DL (8.3-10.6); CARBON DIOXIDE LEVEL 29 MMOL/L (20-31); CHLORIDE LEVEL 103 MMOL/L (98-107); CREATININE FOR GFR 0.88 MG/DL (0.70-1.30); GLOMERULAR FILTRATION RATE > 90.0 (>42); POTASSIUM SERUM 4.5 MMOL/L (3.5-5.1); SODIUM LEVEL 141 MMOL/L (136-145)
[2024-12-07 06:43] LABS: ATYPICAL LYMPH 2 % (0-5); BASOPHILS 1 % (0-1); EOSINOPHILS 2 % (0-3); LYMPHOCYTES 12 % (16-44); MONOCYTES 9 % (0-5); NEUTROPHILS 74 % (28-66)
[2024-12-07 06:44] LABS: PLATELET ESTIMATE INCREASED (NORMAL)
[2024-12-07] MEDS ORDERED: ALTEPLASE 2 MG/2 ML VIAL XX ONE (09:45)
[2024-12-07] MEDS: CLOTRIMAZOLE 1% TOPICAL CREAM 30 GM TOP SCH (10:20)
[2024-12-07] MEDS: ALTEPLASE 10MG IN NS 60ML SYRINGE INTRAPLEU ONE (10:55)
[2024-12-07 12:24] LABS: HIV 1&2 SCREEN NEGATIVE (NEGATIVE)
[2024-12-07 15:06] LABS: C REACTIVE PROTEIN QUANTITATIV 4.58 MG/DL (<1.0)
[2024-12-07] MEDS ORDERED: MORPHINE 2 MG/ML 1 ML VIAL As Ordered ONE (15:09)
[2024-12-07] MEDS: MORPHINE 2 MG/ML 1 ML VIAL IV ONE (15:15)
[2024-12-07 15:36] LABS: IMMUNOGLOBULIN E 221.8 IU/ML (0-378)
[2024-12-07] MEDS: LACTIC ACID 12% LOTION 225 GM BTL EXT SCH (18:20)
[2024-12-07] MEDS: FLUCONAZOLE 100 MG TAB PO SCH (18:20)
[2024-12-07] MEDS: TRIAMCINOLONE ACET 0.1% CREAM 80GM EXT SCH (21:51)
[2024-12-08] VITALS (31 sets, daily range): BP systolic 123–168; BP diastolic 66–75; TEMP 96.9–98.2; O2SAT 87–96
[2024-12-08 06:09] LABS: PLATELET COUNT, AUTOMATED 582 10^3/uL (150-450)
[2024-12-08 06:32] LABS: ALT/SGPT 29.0 U/L (7.0-40); AST/SGOT 15.0 U/L (<34); CALCIUM LEVEL 8.7 MG/DL (8.3-10.6); CARBON DIOXIDE LEVEL 32.0 MMOL/L (20-31); CHLORIDE LEVEL 102.0 MMOL/L (98-107); CREATININE FOR GFR 0.92 MG/DL (0.70-1.30); GLOMERULAR FILTRATION RATE 89.5 (>42); POTASSIUM SERUM 5.0 MMOL/L (3.5-5.1); SODIUM LEVEL 140.0 MMOL/L (136-145)
[2024-12-09] VITALS (12 sets, daily range): BP systolic 150–163; BP diastolic 73–86; TEMP 97.2–97.6; O2SAT 92–98
[2024-12-09 06:51] LABS: BASO # 0.2 10^3/uL (0.0-0.2); BASO % 1.8 % (0.0-1.0); EOS # 0.4 10^3/uL (0.0-0.5); EOS % 3.7 % (0.0-3.0); LYMPH # 1.8 10^3/uL (1.5-5.0); LYMPH % 16.4 % (24.0-44.0); MONO # 0.7 10^3/uL (0.0-0.8); MONO % 6.9 % (2.0-8.0); NEUTROPHILS # 7.0 10^3/uL (1.5-8.5); NEUTROPHILS % 65.7 % (36.0-66.0); PLATELET COUNT, AUTOMATED 556 10^3/uL (150-450)
[2024-12-09 07:18] LABS: ALT/SGPT 28.0 U/L (7.0-40); AST/SGOT 16.0 U/L (<34); CALCIUM LEVEL 8.8 MG/DL (8.3-10.6); CARBON DIOXIDE LEVEL 29.0 MMOL/L (20-31); CHLORIDE LEVEL 106.0 MMOL/L (98-107); CREATININE FOR GFR 0.96 MG/DL (0.70-1.30); GLOMERULAR FILTRATION RATE 85.0 (>42); POTASSIUM SERUM 5.1 MMOL/L (3.5-5.1); SODIUM LEVEL 143.0 MMOL/L (136-145)
[2024-12-09] MEDS ORDERED: CARV12.5 PO (14:43)
[2024-12-09] MEDS ORDERED: CLOT1CRE56 TOP (14:43)
[2024-12-09] MEDS ORDERED: NORV5TAB PO (14:46)
[2024-12-09] MEDS ORDERED: LEVO75TAB PO (14:51)
== END 2024-12-09 16:20 | disposition home or self-care (01) | DRG 177 ==
LOC: M ED 11:09 → EDBD 11:09 → M ED INP 15:41 → M PCU 11-23 16:42
PROVIDERS: ADMIT Student in an Organized Health Care Education/Training Program; ATTEND Student in an Organized Health Care Education/Training Program
PROC: 0W9930Z Drainage of Right Pleural Cavity with Drainage Device, Percutaneous Approach (ICD-10-PCS; principal; 2024-11-28 11:21)
PROC: 0W9930Z Drainage of Right Pleural Cavity with Drainage Device, Percutaneous Approach (ICD-10-PCS; 2024-12-03)
PROC: 3E0L3TZ Introduction of Destructive Agent into Pleural Cavity, Percutaneous Approach (ICD-10-PCS; 2024-12-07)
DX: J15.69 Pneumonia due to other Gram-negative bacteria (principal); J85.0 Gangrene and necrosis of lung; J96.02 Acute respiratory failure with hypercapnia; J96.01 Acute respiratory failure with hypoxia; J44.0 Chronic obstructive pulmonary disease with (acute) lower respiratory infection; J44.1 Chronic obstructive pulmonary disease with (acute) exacerbation; N17.9 Acute kidney failure, unspecified; J90 Pleural effusion, not elsewhere classified; J98.11 Atelectasis; J94.8 Other specified pleural conditions; J93.9 Pneumothorax, unspecified; B37.0 Candidal stomatitis; E78.5 Hyperlipidemia, unspecified; R59.0 Localized enlarged lymph nodes; I10 Essential (primary) hypertension; M19.90 Unspecified osteoarthritis, unspecified site; K57.90 Diverticulosis of intestine, part unspecified, without perforation or abscess without bleeding; E78.00 Pure hypercholesterolemia, unspecified; K21.9 Gastro-esophageal reflux disease without esophagitis; R07.89 Other chest pain; Z96.643 Presence of artificial hip joint, bilateral; M10.9 Gout, unspecified; F17.210 Nicotine dependence, cigarettes, uncomplicated; M54.50 Low back pain, unspecified; G89.29 Other chronic pain; M54.16 Radiculopathy, lumbar region; R74.01 Elevation of levels of liver transaminase levels; E87.5 Hyperkalemia; D72.829 Elevated white blood cell count, unspecified; I16.0 Hypertensive urgency; F32.A Depression, unspecified; E66.9 Obesity, unspecified; F41.9 Anxiety disorder, unspecified; G47.33 Obstructive sleep apnea (adult) (pediatric); Z79.899 Other long term (current) drug therapy; L40.8 Other psoriasis; I89.0 Lymphedema, not elsewhere classified

== ENCOUNTER → 2024-12-25 | Outpatient (CLI) | payer MEDICARE, OTHER ==
[~2024-12-25] MED LIST changes: +CARV12.5 PO; +CLOT1CRE56 TOP; +FLUT1BLS2 INH; +LEVO75TAB PO; +NORV5TAB PO; +OMEG10002 PO
[2024-12-25 13:50] LABS: PLATELET COUNT, AUTOMATED 514 10^3/uL (150-450)
[2024-12-25 14:14] LABS: ALT/SGPT 17 U/L (7.0-40); AST/SGOT 18 U/L (<34); CALCIUM LEVEL 9.4 MG/DL (8.3-10.6); CARBON DIOXIDE LEVEL 29 MMOL/L (20-31); CHLORIDE LEVEL 102 MMOL/L (98-107); CREATININE FOR GFR 0.83 MG/DL (0.70-1.30); GLOMERULAR FILTRATION RATE > 90.0 (>42); POTASSIUM SERUM 4.9 MMOL/L (3.5-5.1); SODIUM LEVEL 137 MMOL/L (136-145)
== END ==
LOC: M LAB 10:30
PROVIDERS: ATTEND Physician Assistant
DX: D72.829 Elevated white blood cell count, unspecified (principal); D75.838 Other thrombocytosis

== ENCOUNTER → 2025-02-05 | Outpatient (CLI) | payer MEDICARE, OTHER ==
[~2025-02-05] MED LIST changes: +PROA1AER2
== END ==
LOC: M RAD 13:04
PROVIDERS: ATTEND Internal Medicine Pulmonary Disease
DX: R91.8 Other nonspecific abnormal finding of lung field (principal); J43.9 Emphysema, unspecified; J98.4 Other disorders of lung